=== PATIENT | female | born 1975 | race Caucasian/White ===

== ENCOUNTER → 2020-01-06 10:40 | Outpatient (BNVA) | payer OTHER, SELFPAY | PROVIDERS: PCP Internal Medicine; Referring Provider Internal Medicine; Visit Provider Advanced Practice Midwife | DX: Z76.89 Persons encountering health services in other specified circumstances (principal) ==

== ENCOUNTER → 2020-02-03 08:48 | Outpatient (BNVA) | payer OTHER, SELFPAY | PROVIDERS: PCP Internal Medicine; Visit Provider Advanced Practice Midwife | DX: Z76.89 Persons encountering health services in other specified circumstances (principal) ==

== ENCOUNTER 2020-09-07 11:19 | Outpatient (REF) | payer OTHER, SELFPAY ==
--- NOTE | ~2020-09-07 | XR_ITS ---
EXAMINATION: XR HIP, LEFT CLINICAL INFORMATION: Pain left hip. COMPARISON: None TECHNIQUE: Two views of the left hip. AP view pelvis. FINDINGS: There is normal symmetry of both hip joints and SI joints. No pelvic bone abnormality seen. There is IUD in the pelvis. The soft tissues are normal. Left hip: There is no visible acute fracture, dislocation or subluxation seen. The soft tissues are normal. XR/XR hip LT w PEL1V IMPRESSION: Unremarkable left hip and AP pelvis.
== END 2020-09-07 11:20 | disposition home or self-care (01) ==
LOC: HO.XRAY 11:19
PROVIDERS: PCP Internal Medicine; Visit Provider Physician Assistant
DX: M25.552 Pain in left hip (principal)
CPT/HCPCS: 73502

== ENCOUNTER 2020-11-17 16:00 | Outpatient (RCR) | payer OTHER, SELFPAY ==
--- NOTE | 2020-10-13 18:27 | MHC.PT.EP ---
[facility] [place] Office [place] Office [place] Office [address] Jose M Garcia [address] [phone] F: [phone] F: [phone] F: [phone] F: [phone] Physical Therapy Plan of Care Date of Evaluation: Date of Surgery: N/A Diagnosis: trochanteric bursitis of left hip Assessment: pt's signs and symptoms consistent w/ SI dysfunction. 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 pt also does have radiating pain and nerve symptoms. pt did not have reproduction of symptoms w/ palpation of greater trochanter, negative Jainya's, no reproduction of pain w/ active abduction ruling out trochanteric bursitis or ITB syndrome. pt had no reproduction of symptoms w/ sciatic nerve tension or w/ tension to piriformis ruling out piriformis syndrome. pt presents to physical therapy with pain, decreased range of motion, decreased strength, impaired functional mobility, impaired postural awareness, and gait deviations. pt is a good candidate for skilled PT due to age, potential remediation of impairments, typical disease/condition progression and prognosis, comorbidities, and motivation. pt would benefit from tailored strengthening and stretching exercise program, functional training, gait training, postural re-training, neuromuscular re-education, modalities as needed for pain, equipment safety demonstration. Frequency and Duration: The patient will be seen 2x/wk for 4 wks Short Term Goals: pt will be I w/ HEP to promote self-management of condition. pt will improve B glute strength by 1 MMT grade to promote ease in car transfers. Snf Goals: pt will report a statistically significant improvement in self-reported outcome measure, LEFI, to promote return to PLOF. pt will report <3/10 L glute pain w/ ambulating work-related distances to improve tolerance of gait as a mail superintendent. Treatment Plan: Modalities to reduce pain, spasms and effusion. Manual therapy to restore motion and function. Therapeutic exercise to improve strength and flexibility. Neuromuscular re-education for posture and balance. Therapeutic activities to return to functional activities of daily living. Electronically signed by: Isabella Lang PT, DPT Please sign and return to therapist. Thank you for your referral.
--- NOTE | 2020-12-16 11:28 | MHC.PT.DC ---
[facility] Office [place] Office [place] Office [address] Jose M Garcia 140 [facility] [phone] F: [phone] F: [phone] F: [phone] F: [phone] Physical Therapy Discharge Report Diagnosis: trochanteric bursitis of left hip Date of Surgery: N/A Date of Evaluation: 10/13/20 Date of Discharge: 12/16/20 Treatments to Date: 3 Cancellations to Date: 2 No Shows to Date: 2 Discharge Status: Visit Non-compliance Discharge Summary: The patient has not followed up with any further appointments in approximately one month. She is discharged for non-compliance. Electronically signed by: Isabella Lang PT, DPT Please sign and return to therapist. Thank you for your referral.
== END 2020-12-16 11:28 | disposition home or self-care (01) ==
LOC: HO.PT 16:00
PROVIDERS: PCP Physician Assistant; Visit Provider Physician Assistant
DX: M70.62 Trochanteric bursitis, left hip (principal)
CPT/HCPCS: 97110; 97112; 97140; 97162

== ENCOUNTER 2020-12-22 12:04 | Inpatient (IN) | payer OTHER, SELFPAY ==
--- NOTE | ~2020-12-22 | CT_ITS ---
EXAMINATION: CT angio head neck CLINICAL INFORMATION: Left upper extremity weakness. Left lower extremity weakness. COMPARISON: No relevant prior imaging. TECHNIQUE: Technologist Development images were obtained. A CT angiogram of the head and neck was performed in the arterial phase after the intravenous administration of 70 mL Omnipaque 350. Pre and delayed postcontrast images of the head were also obtained. MIP reconstructions were generated in multiple orientations at the acquisition workstation. Multiple three-dimensional surface rendered images and maximum intensity projection images were generated on a dedicated 3-D lab workstation. Arterial stenoses are measured in accordance with NASCET criteria or similar method if applicable. This CT examination was performed using dose optimization techniques as appropriate, including one or more of the following: Automated exposure control, iterative reconstruction, and adjustment of technique factors (mA and/or kVp) according to patient size (this includes techniques or standardized protocols for targeted exams where dose is matched to indication/reason for exam). Total exam dose-length product 2180 mGy-cm FINDINGS: Head: There is no acute intracranial hemorrhage. Delayed postcontrast images reveal no abnormal mass or enhancement within the intracranial compartment. No intracranial mass effect or midline shift. Lateral and third ventricles are normal. No hydrocephalus. Rivera-white matter differentiation is preserved and there is no evidence of acute territorial infarct. The calvarium and skull base are intact. Mastoid air cells and middle ear cavities are well aerated. There is mild to moderate paranasal sinus disease primarily affecting the ethmoid air cells. Globes and orbits are symmetric. CT angiogram neck: The aortic arch apex is normal. Origins of major aortic branches are widely patent. Common carotid arteries and carotid bifurcations are normal. No stenosis of the extracranial internal carotid arteries. There is eccentric mural thickening of the proximal V2 segment of the left vertebral artery causing narrowing of the lumen best depicted on axial image 696 [address] angiogram head: Intracranial internal carotid arteries are patent. The intradural vertebral artery segments and basilar artery are patent. There is a vascular fenestration within the proximal basilar artery. Anterior, middle, and posterior cerebral artery complexes are normal. No intracranial large vessel occlusion. Other: Soft tissues of the neck including the thyroid gland are normal. Visualized lung apices are clear. No acute osseous finding. Specifically no worrisome lytic or blastic osseous lesion. CT/CT angio head neck IMPRESSION: There is eccentric mural thickening of the proximal V2 segment of the left vertebral artery. Possible diagnostic considerations include atheromatous plaque or an arterial dissection. Cervical carotid and vertebral arteries are otherwise unremarkable. No intracranial large vessel occlusion. There is no evidence of acute territorial infarct or hemorrhage. No abnormal intracranial mass or enhancement.
--- NOTE | ~2020-12-22 | MR_ITS ---
EXAMINATION: MR BRAIN WITHOUT CONTRAST CLINICAL INFORMATION: Left arm weakness. COMPARISON: Head CT 12/22/2020. TECHNIQUE: Multiplanar, multisequence imaging of the brain was performed without intravenous contrast. FINDINGS: There is no acute infarction, mass, hemorrhage, or extra-axial collection. The ventricles, sulci, and basilar cisterns are normal in size and configuration. The flow voids of the major intracranial arteries appear intact. The bones and extracranial soft tissues are unremarkable. Mild paranasal sinus mucosal thickening is noted. The orbital contents appear normal. There is no mastoid fluid. MR/MR head/brain wo con IMPRESSION: No acute infarct, mass lesion, intracranial hemorrhage, or evidence of hydrocephalus.
[2020-12-22 12:09] VITALS: BP 154/72; PULSE 85; RESP 18; TEMP 36.8; O2SAT 98; BMI 25.8
--- NOTE | 2020-12-22 12:31 | ED_ITS ---
HPI - Neuro Symptoms/Deficit General Chief Complaint: Stroke Stated Complaint: ?stroke Time Seen by Provider: 12/22/20 12:31 Source: patient Mode of arrival: ambulatory Limitations: no limitations History of Present Illness Onset (ago): day(s) (yesterday at 7pm) Timing confirmed by: family member Location: left arm and left leg History of same: No Severity: moderate Quality: weak Relieving factors: none Exacerbating factors: none Context: sudden onset On Anticoagulants: No Associated symptoms: denies other symptoms Treatments Prior to Arrival: none Related Data Home Medications Medication Instructions Recorded Confirmed cetirizine 10 mg tablet (Zyrtec) 10 mg PO DAILY 12/22/20 12/22/20 ibuprofen 100 mg tablet 200 mg PO Q6H PRN 12/22/20 12/22/20 Allergies Allergy/AdvReac Type Severity Reaction Status Date / Time strawberry [STRAWBERRY] Allergy Mild CANKER Verified 12/22/20 12:09 SORES oranges Allergy Intermediate canker Uncoded 12/22/20 11:41 sores tomatoes Allergy Intermediate canker Uncoded 12/22/20 11:41 sores Review of Systems Review of Systems: Constitutional : No Weight loss, No Fever, No Chills, No Fatigue, No Malaise ENT/Mouth : No sore throat, No Rhinorrhea Eyes: No Eye Pain, No Swelling, No Redness Cardiovascular : No Chest Pain, No SOB, No Dyspnea on Exertion, No Orthopnea, No Edema, No Palpitations Respiratory : No Cough, No Sputum, No Wheezing Gastrointestinal : No Nausea, No Vomiting, No Diarrhea, No Constipation, No abdominal Pain, No Hematochezia, No Melena Genitourinary : No Dysuria, No Urinary Frequency, No Hematuria, Musculoskeletal : No joint pain, No Myalgias, No Joint Swelling Skin : No Skin Lesions, No rash Neuro : pos Weakness, No Numbness, No Dizziness, No Headache Psych : pos Anxiety/Panic, No Depression Heme/Lymph: No Bruising, No Bleeding,No Lymphadenopathy Endocrine : No Polyuria, No Polydipsia All other systems reviewed and are negative [facility] Past Medical History Attestation statement: The following information was validated with the patient. Medical History Conjunctivitis Elevated blood pressure reading without diagnosis of hypertension KELSEA (generalized anxiety disorder) History of asthma History of depression Hx of anxiety disorder Insomnia Left hemiparesis Surgical History Hx of ovarian cystectomy Family History Family History Mother Breast cancer Maternal Aunt Breast cancer Paternal Aunt Breast cancer Paternal Grandmother Breast cancer Sister Brain cancer Father Myocardial infarct Maternal Grandfather CVD (cardiovascular disease) Family/Other Substance abuse Mental problem Social History Social History Housing: Apartment Alcohol intake: current Alcohol intake frequency: a few times a week Patient Tobacco Use Status: Current everyday Tobacco user Tobacco use type: Cigarette Cigarettes Per Day: 15 e-Cigarette/Vaping Use: Never Used Advance Directives: No Advance Directives Information Provided: No service: No Current occupational status: employed 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 Oriented X3. No acute distress. Very anxious, tearful Eyes: Pupils equal, round and reactive to light. ENT: Pharynx normal. Neck: Normal inspection. Neck supple. CVS: Normal heart rate and rhythm. Pulses normal. Respiratory: No respiratory distress. Breath sounds normal. Abdomen: Soft and nontender. Skin: Skin warm and dry. Normal skin color. Normal skin turgor. Extremities: No lower extremity edema. No calf ttp Neuro: Oriented X 3. LUE 4/5 then will not raise it at shoulder, + L sided UE pronator drift, LLE 4/5 No sensory deficit. Course Course Course Narrative: patient is presenting over 12 hours after onset not a candidate for tPa or thrombectomy given findings will discuss with Neurology and vascular 410pm Dr. Ruelas and Dr. Silva Neurology: admit and start on aspirin Vascular: no acute surgical interventions at this time Radiology reports possible dissection patient aware, ordered PO aspirin MDM - Neuro Symptoms/Deficit MDM Narrative Medical decision making narrative: 45 yo female with hx of anxiety, recent sig life stress - no prior known issues with stroke at this time c/o L arm and leg weakness starting at 7pm last night. No recent trauma no known family history - at this time needs ativan to obtain blood work and testing due to her anxiety - labs, CTA for stroke/dissection ordered. Dispo per results and findings. Lab Data Result diagrams: 12/22/20 13:22 12/22/20 13:22 Labs: Lab Results 12/22/20 12/22/20 12/22/20 Range/Units 13:22 13:22 13:22 WBC 10.2 (4.8-10.8) X10*3/uL RBC 4.59 (4.20-5.50) X10*6/uL Hgb 14.5 (12.0-16.0) g/dl Hct 42.7 (37-47) % MCV 93.0 (80-98) fL MCH 31.6 (27.0-33.0) pg MCHC 34.0 (31.0-35.0) g/dl RDW 13.3 (11.0-16.0) % Plt Count 293 (160-400) X10*3/uL MPV 9.3 L (9.4-12.3) fL Immature Gran % (Auto) 0.7 H (0.0-0.4) % Neut % (Auto) 69.9 (45-73) % Lymph % (Auto) 18.7 L (20-40) % [place] % (Auto) 9.3 (2-11) % Eos % (Auto) 1.0 (0-4) % Baso % (Auto) 0.4 (0-2) % Lymph # (Auto) 1.9 (1.2-4.9) X10*3/uL [place] # (Auto) 1.0 (0.1-1.2) X10*3/uL Eos # (Auto) 0.1 (0.0-0.4) X10*3/uL Baso # (Auto) 0.0 (0.0-0.2) X10*3/uL Abs Immat Gran (auto) 0.07 H (0.00-0.03) X10*3/uL Absolute Neuts (auto) 7.1 (2.0-8.3) X10*3/uL Absolute Nucleated RBC 0.000 (0.0-0.012) X10*3/uL Nucleated RBC % (auto) 0.0 (0.0-0.2) /100WBC ESR 2 (0-20) MM/HR PT (9.9-13.0) SEC INR (0.9-1.1) APTT (24.1-38.0) SEC Sodium Cancelled Potassium Cancelled Chloride Cancelled Carbon Dioxide Cancelled Anion Gap Cancelled BUN Cancelled Creatinine Cancelled Estim Creat Clear Calc Cancelled Estimated GFR Cancelled Random Glucose Cancelled Calcium Cancelled Magnesium Cancelled Total Bilirubin Cancelled Direct Bilirubin Cancelled AST Cancelled ALT Cancelled Alkaline Phosphatase Cancelled Troponin I High Sens (<3.5-17.0) ng/L C-Reactive Protein Cancelled Total Protein Cancelled Albumin Cancelled TSH (0.32-4.0) uIU/mL Urine Color Urine Appearance Urine pH (5.0-8.0) Ur Specific [place] (1.005-1.025) Urine Protein (NEG-TRACE) MG/DL Urine Glucose (UA) (NEG) MG/DL Urine Ketones (NEG) MG/DL Urine Blood (NEG) Urine Nitrite (NEG) Ur Leukocyte Esterase (NEG) Urine Opiates Screen (Not Detect) Urine Fentanyl Screen (Not Detect) Ur Barbiturates Screen (Not Detect) Ur Phencyclidine Scrn (Not Detect) Ur Amphetamines Screen (Not Detect) U Benzodiazepines Scrn (Not Detect) Urine Cocaine Screen (Not Detect) U Marijuana (THC) Screen (Not Detect) COVID-19 (JUDD) (Negative) COVID-19 Clin Com 12/22/20 12/22/20 12/22/20 Range/Units 13:22 13:22 13:22 WBC (4.8-10.8) X10*3/uL RBC (4.20-5.50) X10*6/uL Hgb (12.0-16.0) g/dl Hct (37-47) % MCV (80-98) fL MCH (27.0-33.0) pg MCHC (31.0-35.0) g/dl RDW (11.0-16.0) % Plt Count (160-400) X10*3/uL MPV (9.4-12.3) fL Immature Gran % (Auto) (0.0-0.4) % Neut % (Auto) (45-73) % Lymph % (Auto) (20-40) % [place] % (Auto) (2-11) % Eos % (Auto) (0-4) % Baso % (Auto) (0-2) % Lymph # (Auto) (1.2-4.9) X10*3/uL [place] # (Auto) (0.1-1.2) X10*3/uL Eos # (Auto) (0.0-0.4) X10*3/uL Baso # (Auto) (0.0-0.2) X10*3/uL Abs Immat Gran (auto) (0.00-0.03) X10*3/uL Absolute Neuts (auto) (2.0-8.3) X10*3/uL Absolute Nucleated RBC (0.0-0.012) X10*3/uL Nucleated RBC % (auto) (0.0-0.2) /100WBC ESR (0-20) MM/HR PT 11.0 (9.9-13.0) SEC INR 1.0 (0.9-1.1) APTT 32.7 (24.1-38.0) SEC Sodium 142 Potassium 4.2 Chloride 108 Carbon Dioxide 23 Anion Gap 15 BUN 9 Creatinine 0.65 Estim Creat Clear Calc 109.1 Estimated GFR > 60 Random Glucose 97 Calcium 9.5 Magnesium 2.0 Total Bilirubin 0.5 Direct Bilirubin 0.2 AST 23 ALT 15 Alkaline Phosphatase 47 Troponin I High Sens < 3.5 (<3.5-17.0) ng/L C-Reactive Protein 0.14 Total Protein 6.7 Albumin 4.1 TSH 0.92 (0.32-4.0) uIU/mL Urine Color Urine Appearance Urine pH (5.0-8.0) Ur Specific [place] (1.005-1.025) Urine Protein (NEG-TRACE) MG/DL Urine Glucose (UA) (NEG) MG/DL Urine Ketones (NEG) MG/DL Urine Blood (NEG) Urine Nitrite (NEG) Ur Leukocyte Esterase (NEG) Urine Opiates Screen (Not Detect) Urine Fentanyl Screen (Not Detect) Ur Barbiturates Screen (Not Detect) Ur Phencyclidine Scrn (Not Detect) Ur Amphetamines Screen (Not Detect) U Benzodiazepines Scrn (Not Detect) Urine Cocaine Screen (Not Detect) U Marijuana (THC) Screen (Not Detect) COVID-19 (JUDD) (Negative) COVID-19 Clin Com 12/22/20 12/22/20 12/22/20 Range/Units 13:22 13:53 13:53 WBC (4.8-10.8) X10*3/uL RBC (4.20-5.50) X10*6/uL Hgb (12.0-16.0) g/dl Hct (37-47) % MCV (80-98) fL MCH (27.0-33.0) pg MCHC (31.0-35.0) g/dl RDW (11.0-16.0) % Plt Count (160-400) X10*3/uL MPV (9.4-12.3) fL Immature Gran % (Auto) (0.0-0.4) % Neut % (Auto) (45-73) % Lymph % (Auto) (20-40) % [place] % (Auto) (2-11) % Eos % (Auto) (0-4) % Baso % (Auto) (0-2) % Lymph # (Auto) (1.2-4.9) X10*3/uL [place] # (Auto) (0.1-1.2) X10*3/uL Eos # (Auto) (0.0-0.4) X10*3/uL Baso # (Auto) (0.0-0.2) X10*3/uL Abs Immat Gran (auto) (0.00-0.03) X10*3/uL Absolute Neuts (auto) (2.0-8.3) X10*3/uL Absolute Nucleated RBC (0.0-0.012) X10*3/uL Nucleated RBC % (auto) (0.0-0.2) /100WBC ESR (0-20) MM/HR PT (9.9-13.0) SEC INR (0.9-1.1) APTT (24.1-38.0) SEC Sodium Potassium Chloride Carbon Dioxide Anion Gap BUN Creatinine Estim Creat Clear Calc Estimated GFR Random Glucose Calcium Magnesium Total Bilirubin Direct Bilirubin AST ALT Alkaline Phosphatase Troponin I High Sens (<3.5-17.0) ng/L C-Reactive Protein Total Protein Albumin TSH (0.32-4.0) uIU/mL Urine Color STRAW Urine Appearance CLEAR Urine pH 6.0 (5.0-8.0) Ur Specific [place] <= 1.005 (1.005-1.025) Urine Protein NEG (NEG-TRACE) MG/DL Urine Glucose (UA) NEG (NEG) MG/DL Urine Ketones NEG (NEG) MG/DL Urine Blood NEG (NEG) Urine Nitrite NEG (NEG) Ur Leukocyte Esterase NEG (NEG) Urine Opiates Screen Not Detected (Not Detect) Urine Fentanyl Screen Not Detected (Not Detect) Ur Barbiturates Screen Not Detected (Not Detect) Ur Phencyclidine Scrn Not Detected (Not Detect) Ur Amphetamines Screen Not Detected (Not Detect) U Benzodiazepines Scrn Not Detected (Not Detect) Urine Cocaine Screen Not Detected (Not Detect) U Marijuana (THC) Screen Not Detected (Not Detect) COVID-19 (JUDD) Negative (Negative) COVID-19 Clin Com See Note ECG Data Attestation: I personally reviewed and interpreted this ECG as follows: ECG interpretation date: 12/22/20 ECG interpretation time: 14:01 Interpretation: Rate: 97 Rhythm: NSR [place]: normal Normal P waves. Normal JUSTUS. Normal QRS complex. ST T wave : no RONALDO, normal qTC: normal prior studies: no acute ischemia The study has been interpreted contemporaneously by me. . NIH Stroke Scale Internal: Initial- Upon Arrival Level of Consciousness: Alert Level of Consciousness Questions: Answers both questions correctly Level of Consciousness Commands: Performs both tasks correctly Best Gaze: Normal Visual: No visual loss Facial Palsy: Normal Motor Arm (Right): No drift Motor Arm (Left): Some effort against gravity Motor Leg (Right): No drift Motor Leg (Left): Some effort against gravity Limb Ataxia: Absent Sensory: Normal Best Language: No aphasia Dysarthia: Normal Extinction and Inattention: No abnormality Score: 4 Discharge Plan Discharge Clinical Impression: Left arm weakness, Vertebral artery dissection Patient Disposition: Admitted As Inpatient Prescriptions: No Action cetirizine [Zyrtec] 10 mg Tablet 10 mg PO DAILY RF: 0 ibuprofen [Motrin] 100 mg Tablet 200 mg PO Q6H PRN (Reason: Pain) RF: 0
--- NOTE | 2020-12-22 12:35 | ECG_ITS ---
Test Reason : STROKE Blood Pressure : / mmHG Vent. Rate : 097 BPM Atrial Rate : 097 BPM P-R Int : 152 ms QRS Dur : 074 ms QT Int : 358 ms P-R-T Axes : 047 049 024 degrees QTc Int : 454 ms Normal sinus rhythm Possible Left atrial enlargement Borderline ECG When compared with ECG of 29-MAR-2017 09:44, Premature ventricular complexes are no longer Present Referred By: Rebecca Hilario Electronically Signed By:ARI EARL
[2020-12-22] MEDS: LORazepam 1 MG TABLET 2 MG PO (12:51)
--- NOTE | 2020-12-22 12:57 | PC.NURSE ---
PT CRYING, REFUSING IV. MD AWARE. MED WITH ATIVAN AND WILL READDRESS IV IN 15 MIN.
[2020-12-22] MEDS: 0.9 % Sodium Chloride 1,000 ML 999 ML IVCONT (13:25)
[2020-12-22 13:27] LABS: MANUAL DIFF FLAG NO
[2020-12-22 13:38] LABS: Basophils Percent Auto 0.4 % (0-2); Eosinophils Absolute Auto 0.1 X10*3/uL (0.0-0.4); Hematocrit 42.7 % (37-47); Hemoglobin 14.5 g/dl (12.0-16.0); Imm Gran Abs Auto 0.07 X10*3/uL (0.00-0.03); Imm Gran Pct Auto 0.7 % (0.0-0.4); Lymphocytes Absolute Auto 1.9 X10*3/uL (1.2-4.9); Lymphocytes Percent Auto 18.7 % (20-40); Mean Corpuscular Hemoglobin 31.6 pg (27.0-33.0); Mean Platelet Volume 9.3 fL (9.4-12.3); Monocytes Percent Auto 9.3 % (2-11); Neutrophils Absolute Auto 7.1 X10*3/uL (2.0-8.3); Neutrophils Percent Auto 69.9 % (45-73); Platelet Count 293 X10*3/uL (160-400); Red Blood Count 4.59 X10*6/uL (4.20-5.50); Red Cell Distribution Width 13.3 % (11.0-16.0); White Blood Count 10.2 X10*3/uL (4.8-10.8)
[2020-12-22 13:45] LABS: COVID-19 Test Negative (Negative); IDNOW Serial# 9DD0AD1C
[2020-12-22 13:49] LABS: Troponin-I High Sensitivity < 3.5 ng/L (<3.5-17.0)
[2020-12-22 13:51] LABS: Alanine Aminotransferase 15 U/L (0-31); Albumin Level 4.1 g/dL (3.5-5.0); Alkaline Phosphatase 47 U/L (39-117); Anion Gap 15 (12-20); Aspartate Amino Transferase 23 U/L (5-31); Bilirubin Direct 0.2 mg/dL (0.0-0.5); Bilirubin Total 0.5 mg/dL (0.0-1.0); Blood Urea Nitrogen 9 mg/dL (9-16); C Reactive Protein 0.14 mg/dL (< or = 0.50); Calcium 9.5 mg/dL (8.4-10.2); Carbon Dioxide 23 mmol/L (22-29); Chloride 108 mmol/L (96-108); Creatinine Clr Calc Pharmacy 109.1; Estimated Glomerular Filt Rate > 60; Glucose Random 97 mg/dL (60-115); Potassium 4.2 mmol/L (3.3-5.1); Sodium 142 mmol/L (135-145); Total Protein 6.7 g/dL (6.5-8.0)
[2020-12-22 13:55] VITALS: BP 112/68; PULSE 81; RESP 15; TEMP 36.9; O2SAT 99
[2020-12-22 14:03] LABS: Partial Thromboplastin Time 32.7 SEC (24.1-38.0)
[2020-12-22 14:08] LABS: TSH reflex Free T4 0.92 uIU/mL (0.32-4.0)
[2020-12-22 14:15] LABS: Appearance Urine CLEAR; Color Urine STRAW; Glucose Urine UA NEG (NEG); Leukocyte Esterase Urine NEG (NEG); Nitrite Urine NEG (NEG); Specific Gravity - Urine <= 1.005 (1.005-1.025); Urine Blood NEG (NEG); Urine Ketones NEG (NEG); Urine Protein NEG (NEG-TRACE)
[2020-12-22 14:17] LABS: Amphetamine Screen Urine Not Detected (Not Detect); Barbiturates, Urine Not Detected (Not Detect); Benzodiazepines Screen Urine Not Detected (Not Detect); Cannabinoid Screen Urine Not Detected (Not Detect); Cocaine Screen Urine Not Detected (Not Detect); Fentanyl, urine Not Detected (Not Detect); Opiate Screen Urine Not Detected (Not Detect); Phencyclidine Screen Urine Not Detected (Not Detect)
[2020-12-22 14:44] LABS: Erythrocyte Sedimentation Rate 2 MM/HR (0-20)
--- NOTE | 2020-12-22 15:52 | MHC.STROKE ---
Addendum entered by Zaira Ledesma RN 12/22/20 16:29: [address] MALDONADO AND WE REVIEWED THE CTA RESULTS. I DID SPEAK WITH DR BRAGA ON THE PHONE AND HE IS RECOMMENDING HER TO BE ADMITTED AND DR VEGA WILL SEE HER IN CONSULT TOMORROW. Original Note: [id number] I MET WITH THE PATIENT AND EXPLAINED THE PLAN OF CARE WHILE SHE WAS IN THE ED. SHE PASSED THE SWALLOW SCREEN PRIOR TO ANY PO. SHE IS STILL C/O LEFT ARM HEAVINESS AND MINIMAL LEFT LEG WEAKNESS. NIHSS = [address] MALDONADO. 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 CTA H/N DONE AND IS PENDING. I ANSWERED ALL OF HER QUESTIONS AND I WILL CONTINUE TO FOLLOW.
--- NOTE | 2020-12-22 15:55 | PC.NURSE ---
assumed care for this patient at 1500, pt resting comfortably in bed at this time pending ct results. aware of plan of care and denied having any questions.
[2020-12-22] MEDS: Aspirin Enteric Coated 325 MG TABLET.DR PO (16:37)
--- NOTE | 2020-12-22 18:02 | PM.IMHP ---
History of Present Illness Date of Service: 12/22/20 Chief Complaint: Left arm weakness 45-year-old female with essentially no past medical history presents with approximately 14 hours or more of left-sided arm weakness. She states it began while watching TV on the couch her arm felt ?weird?. This persisted all evening. 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 She noted throughout the day that she was unable to hold her sac and that male was falling out due to her left arm weakness. She had 11:00 appointment with her PCP who sent her directly to the emergency room. In the emergency room she was found to have left-sided weakness; CT angio head and neck demonstrates eccentric mural thickening and of the proximal V2 segment of the left vertebral artery. Differential diagnosis includes atheromatous plaque or arterial dissection. ER physician placed a call to both Neurology and vascular surgery; neurology recommended aspirin 325 daily and will follow in a.m.. Vascular surgery stated there was no indication for intervention. At this point in time her deficit is stable and she will be admitted to telemetry for further workup and consult to Neurology Review of Systems Review of Systems: She denies chest pain She denies shortness of breath She denies nausea vomiting diarrhea She denies swallowing difficulties [facility] Medical History Conjunctivitis Elevated blood pressure reading without diagnosis of hypertension KELSEA (generalized anxiety disorder) History of asthma History of depression Hx of anxiety disorder Insomnia Left hemiparesis Family History Mother Breast cancer Maternal Aunt Breast cancer Paternal Aunt Breast cancer Paternal Grandmother Breast cancer Sister Brain cancer Father Myocardial infarct Maternal Grandfather CVD (cardiovascular disease) Family/Other Substance abuse Mental problem Pertinent family history: . 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 [employer] Meds Allergies Allergy/AdvReac Type Severity Reaction Status Date / Time strawberry [STRAWBERRY] Allergy Mild CANKER Verified 12/22/20 12:09 SORES oranges Allergy Intermediate canker Uncoded 12/22/20 11:41 sores tomatoes Allergy Intermediate canker Uncoded 12/22/20 11:41 sores Active Medications: Current Medications Melatonin (Melatonin 3 Mg Tablet) 6 mg PO BEDTIME PRN PRN Reason: Insomnia Ondansetron HCl (Ondansetron Hcl 4 Mg/2 Ml Vial) 4 mg IVPUSH Q8H PRN PRN Reason: Nausea and Vomiting Pharmacy Consult (Consult Rx Perform Med Rec) 1 each MISCELLANE ONCE PRN PRN Reason: Consult order Sodium Chloride (0.9 % Sodium Chloride Flush 3 Ml Syringe) [facility] [place] Medication Instructions Recorded Confirmed Last Taken Type cetirizine 10 mg tablet (Zyrtec) 10 mg PO DAILY 12/22/20 12/22/20 Unknown History ibuprofen 100 mg tablet 200 mg PO Q6H PRN 12/22/20 12/22/20 Unknown History Physical Exam Vital Signs and Narrative: Vital Signs: Last Vital Signs Temp 98.4 F 12/22/20 13:55 Pulse 81 12/22/20 13:55 Resp 15 12/22/20 13:55 BP 112/68 12/22/20 13:55 Pulse Ox 99 12/22/20 13:55 Body Mass Index 25.8 Const: Other: Anxious; no acute distress HENMT: Other: Mucous membranes are moist; oropharynx is clear. Palate is symmetrical Resp: Other: Clear to auscultation; no rales rhonchi or wheezes Cardio: Other: No S4; S1-S2; no S3 without murmurs rubs or gallops. Regular rate and rhythm GI: Other: Soft nontender nondistended with normoactive bowel sounds. No apparent hepatosplenomegaly Neuro: Other: Cranial nerves 2-12 grossly intact as tested. There is marked pronator drift on the left. Motor is 5/5 on the right and 3-4 left upper extremity 4-5 right lower extremity. Gait is steady but guarded. No cognitive deficit appreciated Extrem: Other: No edema bilaterally Results Labs CBC and Chem 7: 12/22/20 13:22 12/22/20 13:22 Labs: Laboratory Results - last 24 hr 12/22/20 12/22/20 12/22/20 13:22 13:22 13:22 MCV 93.0 MCH 31.6 MCHC 34.0 RDW 13.3 Plt Count 293 MPV 9.3 L Immature Gran % (Auto) 0.7 H Neut % (Auto) 69.9 Lymph % (Auto) 18.7 L [place] % (Auto) 9.3 Eos % (Auto) 1.0 Baso % (Auto) 0.4 Lymph # (Auto) 1.9 [place] # (Auto) 1.0 Eos # (Auto) 0.1 Baso # (Auto) 0.0 Abs Immat Gran (auto) 0.07 H Absolute Neuts (auto) 7.1 Absolute Nucleated RBC 0.000 Nucleated RBC % (auto) 0.0 ESR 2 PT INR APTT Anion Gap Cancelled Estim Creat Clear Calc Cancelled Estimated GFR Cancelled Random Glucose Cancelled Calcium Cancelled Magnesium Cancelled Total Bilirubin Cancelled Direct Bilirubin Cancelled AST Cancelled ALT Cancelled Alkaline Phosphatase Cancelled Troponin I High Sens C-Reactive Protein Cancelled Total Protein Cancelled Albumin Cancelled TSH Urine Color Urine Appearance Urine pH Ur Specific [place] Urine Protein Urine Glucose (UA) Urine Ketones Urine Blood Urine Nitrite Ur Leukocyte Esterase Urine Opiates Screen Urine Fentanyl Screen Ur Barbiturates Screen Ur Phencyclidine Scrn Ur Amphetamines Screen U Benzodiazepines Scrn Urine Cocaine Screen U Marijuana (THC) Screen COVID-19 (JUDD) COVID-19 Clin Com 12/22/20 12/22/20 12/22/20 13:22 13:22 13:22 MCV MCH MCHC RDW Plt Count MPV Immature Gran % (Auto) Neut % (Auto) Lymph % (Auto) [place] % (Auto) Eos % (Auto) Baso % (Auto) Lymph # (Auto) [place] # (Auto) Eos # (Auto) Baso # (Auto) Abs Immat Gran (auto) Absolute Neuts (auto) Absolute Nucleated RBC Nucleated RBC % (auto) ESR PT 11.0 INR 1.0 APTT 32.7 Anion Gap 15 Estim Creat Clear Calc 109.1 Estimated GFR > 60 Random Glucose 97 Calcium 9.5 Magnesium 2.0 Total Bilirubin 0.5 Direct Bilirubin 0.2 AST 23 ALT 15 Alkaline Phosphatase 47 Troponin I High Sens < 3.5 C-Reactive Protein 0.14 Total Protein 6.7 Albumin 4.1 TSH 0.92 Urine Color Urine Appearance Urine pH Ur Specific [place] Urine Protein Urine Glucose (UA) Urine Ketones Urine Blood Urine Nitrite Ur Leukocyte Esterase Urine Opiates Screen Urine Fentanyl Screen Ur Barbiturates Screen Ur Phencyclidine Scrn Ur Amphetamines Screen U Benzodiazepines Scrn Urine Cocaine Screen U Marijuana (THC) Screen COVID-19 (JUDD) COVID-19 Clin Com 12/22/20 12/22/20 12/22/20 13:22 13:53 13:53 MCV MCH MCHC RDW Plt Count MPV Immature Gran % (Auto) Neut % (Auto) Lymph % (Auto) [place] % (Auto) Eos % (Auto) Baso % (Auto) Lymph # (Auto) [place] # (Auto) Eos # (Auto) Baso # (Auto) Abs Immat Gran (auto) Absolute Neuts (auto) Absolute Nucleated RBC Nucleated RBC % (auto) ESR PT INR APTT Anion Gap Estim Creat Clear Calc Estimated GFR Random Glucose Calcium Magnesium Total Bilirubin Direct Bilirubin AST ALT Alkaline Phosphatase Troponin I High Sens C-Reactive Protein Total Protein Albumin TSH Urine Color STRAW Urine Appearance CLEAR Urine pH 6.0 Ur Specific [place] <= 1.005 Urine Protein NEG Urine Glucose (UA) NEG Urine Ketones NEG Urine Blood NEG Urine Nitrite NEG Ur Leukocyte Esterase NEG Urine Opiates Screen Not Detected Urine Fentanyl Screen Not Detected Ur Barbiturates Screen Not Detected Ur Phencyclidine Scrn Not Detected Ur Amphetamines Screen Not Detected U Benzodiazepines Scrn Not Detected Urine Cocaine Screen Not Detected U Marijuana (THC) Screen Not Detected COVID-19 (JUDD) Negative COVID-19 Clin Com See Note Imaging Radiologist's Impressions: Impressions Head/Neck CTA 12/22/20 12:35 IMPRESSION: There is eccentric mural thickening of the proximal V2 segment of the left vertebral artery. Possible diagnostic considerations include atheromatous plaque or an arterial dissection. Cervical carotid and vertebral arteries are otherwise unremarkable. No intracranial large vessel occlusion. There is no evidence of acute territorial infarct or hemorrhage. No abnormal intracranial mass or enhancement. Assessment and Plan (1) Vertebral artery dissection: Status: Acute (2) Left arm weakness: Status: Acute (3) KELSEA (generalized anxiety disorder): Status: Acute 45-year-old female with past medical history significant only for general anxiety disorder presents after approximately 14 hours of left arm and leg weakness. ER workup including CT angio of head and neck demonstrate eccentric mural thickening of the proximal V2 segment of the left vertebral artery. Differential diagnosis include atheromatous plaque versus arterial dissection. Patient will be admitted to telemetry with neuro consult in a.m. 1. Eccentric mural thickening proximal V2 segment left vertebral artery Will admit to telemetry; continue aspirin 325 daily with consult placed to neurology for the morning. Will check lipids in a.m. and treat as indicated. TSH normal on admitting labs 2. Generalized anxiety disorder Given Ativan in the ER with good effect; patient somewhat anxious on presentation will prescribe p.r.n. Ativan overnight and follow up response in the morning. 3. Tobacco abuse She has approximately 1 pack a day smoker for (years). Declines nicotine patch at this time will utilize Ativan if issues. Follow-up with Neurology in the morning question appropriateness of nicotine patch 4. Full code DVT prophylaxis: Venodyne boots Further plans based on clinical course and forthcoming data Quality Stroke Does the patient have a stroke diagnosis?: No Reason for No Anti-thrombotic by Day Two: N/A - Med Ordered VTE Prior VTE?: No VTE Risk Level:: Medical - moderate - high VTE Device Contraindication: N/A - Device Ordered VTE Drug Contraindication: Treatment Not Indicated
[2020-12-22 19:04] LABS: Glucose, Whole Blood 84 mg/dL (60-115)
[2020-12-22 19:16] VITALS: BP 131/68; PULSE 74; RESP 14; TEMP 36.9; O2SAT 98
--- NOTE | 2020-12-22 22:08 | MHC.CM.PN ---
CM attempted to meet with admitted patient with bed assignment pending. Pt sleeping soundly. Unable to wake. Will attempt to meet with pt when she wakes.
[2020-12-22 23:20] VITALS: BP 108/63; PULSE 80; RESP 16; O2SAT 97
[2020-12-23] VITALS (7 sets, daily range): BP systolic 108–142; BP diastolic 55–76; PULSE 73–79; RESP 17–18; TEMP 36.5–37; O2SAT 96–99
[2020-12-23 06:54] LABS: MANUAL DIFF FLAG NO
[2020-12-23 06:57] LABS: Basophils Percent Auto 0.5 % (0-2); Eosinophils Absolute Auto 0.2 X10*3/uL (0.0-0.4); Eosinophils Percent Auto 2.2 % (0-4); Hematocrit 40.5 % (37-47); Hemoglobin 13.7 g/dl (12.0-16.0); Imm Gran Abs Auto 0.07 X10*3/uL (0.00-0.03); Imm Gran Pct Auto 0.8 % (0.0-0.4); Lymphocytes Absolute Auto 1.5 X10*3/uL (1.2-4.9); Lymphocytes Percent Auto 17.1 % (20-40); Mean Corpuscular HGB Conc 33.8 g/dl (31.0-35.0); Mean Corpuscular Hemoglobin 31.4 pg (27.0-33.0); Mean Corpuscular Volume 92.9 fL (80-98); Mean Platelet Volume 9.5 fL (9.4-12.3); Monocytes Absolute Auto 0.9 X10*3/uL (0.1-1.2); Monocytes Percent Auto 10.3 % (2-11); Neutrophils Absolute Auto 5.9 X10*3/uL (2.0-8.3); Neutrophils Percent Auto 69.1 % (45-73); Platelet Count 291 X10*3/uL (160-400); Red Blood Count 4.36 X10*6/uL (4.20-5.50); Red Cell Distribution Width 13.4 % (11.0-16.0); White Blood Count 8.6 X10*3/uL (4.8-10.8)
[2020-12-23 07:31] LABS: Anion Gap 11 (12-20); Blood Urea Nitrogen 8 mg/dL (9-16); Calcium 8.6 mg/dL (8.4-10.2); Carbon Dioxide 23 mmol/L (22-29); Chloride 110 mmol/L (96-108); Cholesterol 183 mg/dL; Creatinine Clr Calc Pharmacy 116.3; Estimated Glomerular Filt Rate > 60; Glucose Random 79 mg/dL (60-115); HDL Cholesterol 49 mg/dL; LDL Cholesterol Calculated 120 mg/dl; Potassium 4.5 mmol/L (3.3-5.1); Sodium 139 mmol/L (135-145); Triglycerides 74 mg/dL
--- NOTE | 2020-12-23 08:05 | PC.NURSE ---
report taken from madhu chua pt here for stroke like s/s, neuros appear grossly intact, l side arm and leg weaker than r, still moving independently. denies hx of htn or stroke in past. tolerating po w good swallow, multiple food and drink items around pt. wctm for dc needs.
--- NOTE | 2020-12-23 10:48 | MHC.CM.PN ---
CM MET WITH PT IN ED 03. PT REPORTS SHE LIVES WITH HER DAUGHTER AND IS FULLY INDEPENDENT PT HAS NO DME AND NO IN HOME SERVICES PT IS EMPLOYED AND DRIVES PT DOES NOT HAVE A HCP, SHE IS AWARE CM CAN ASSIST PT CONFIRMS HER PCP IS KATIE ROMERO CURRENT DC PLAN IS HOME WITH NO SERVICES PT WILL DRIVE HERSELF HOME, CAR IN LOT
--- NOTE | 2020-12-23 11:58 | HO.PM.IMPN ---
Subjective Subjective Date of Service: 12/23/20 Interval History: No acute events overnight. Feels she can move her left arm somewhat better although feels heavy . No exacerbation of anxiety thus far Review of Systems She denies chest pain She denies shortness of breath She denies nausea vomiting diarrhea She denies swallowing difficulties Physical Exam Vital Signs: Vital Signs: Last Vital Signs Temp 98.0 F 12/23/20 01:56 Pulse 75 12/23/20 04:44 Resp 18 12/23/20 04:44 BP 108/65 12/23/20 04:44 Pulse Ox 98 12/23/20 04:44 Body Mass Index 25.8 Const: Other: Anxious; no acute distress HENMT: Other: Mucous membranes are moist; oropharynx is clear. Palate is symmetrical Resp: Other: Clear to auscultation; no rales rhonchi or wheezes Cardio: Other: No S4; S1-S2; no S3 without murmurs rubs or gallops. Regular rate and rhythm GI: Other: Soft nontender nondistended with normoactive bowel sounds. No apparent hepatosplenomegaly Neuro: Other: Cranial nerves 2-12 grossly intact as tested. There is marked pronator drift on the left. Motor is 5/5 on the right UE and 4/5 left UE; 5/5 right lower extremity. Gait is steady but guarded. No cognitive deficit appreciated Extrem: Other: No edema bilaterally Objective Data Active Medications Lorazepam (Lorazepam 0.5 Mg Tablet) 0.5 mg PO Q6H PRN PRN Reason: Anxiety Melatonin (Melatonin 3 Mg Tablet) 6 mg PO BEDTIME PRN PRN Reason: Insomnia Ondansetron HCl (Ondansetron Hcl 4 Mg/2 Ml Vial) 4 mg IVPUSH Q8H PRN PRN Reason: Nausea and Vomiting Pharmacy Consult (Consult Rx Perform Med Rec) 1 each MISCELLANE ONCE PRN PRN Reason: Consult order Sodium Chloride (0.9 % Sodium Chloride Flush 3 Ml Syringe) 3 ml IVFLUSH QSHIFT [facility] Last Admin: 12/23/20 08:05 Dose: Not Given Documented by: RICARDA Non-Admin Reason: Med Not Available Labs CBC & Chem 7: 12/23/20 06:50 12/23/20 06:50 Labs: Laboratory Results - last 24 hr 12/22/20 12/22/20 12/22/20 13:22 13:22 13:22 MCV 93.0 MCH 31.6 MCHC 34.0 RDW 13.3 Plt Count 293 MPV 9.3 L Immature Gran % (Auto) 0.7 H Neut % (Auto) 69.9 Lymph % (Auto) 18.7 L [place] % (Auto) 9.3 Eos % (Auto) 1.0 Baso % (Auto) 0.4 Lymph # (Auto) 1.9 [place] # (Auto) 1.0 Eos # (Auto) 0.1 Baso # (Auto) 0.0 Abs Immat Gran (auto) 0.07 H Absolute Neuts (auto) 7.1 Absolute Nucleated RBC 0.000 Nucleated RBC % (auto) 0.0 ESR 2 PT INR APTT Anion Gap Cancelled Estim Creat Clear Calc Cancelled Estimated GFR Cancelled POC Glucose Random Glucose Cancelled Calcium Cancelled Magnesium Cancelled Total Bilirubin Cancelled Direct Bilirubin Cancelled AST Cancelled ALT Cancelled Alkaline Phosphatase Cancelled Troponin I High Sens C-Reactive Protein Cancelled Total Protein Cancelled Albumin Cancelled Triglycerides Cholesterol LDL Cholesterol, Calc HDL Cholesterol TSH Urine Color Urine Appearance Urine pH Ur Specific [place] Urine Protein Urine Glucose (UA) Urine Ketones Urine Blood Urine Nitrite Ur Leukocyte Esterase Urine Opiates Screen Urine Fentanyl Screen Ur Barbiturates Screen Ur Phencyclidine Scrn Ur Amphetamines Screen U Benzodiazepines Scrn Urine Cocaine Screen U Marijuana (THC) Screen COVID-19 (JUDD) COVID-19 Clin Com 12/22/20 12/22/20 12/22/20 13:22 13:22 13:22 MCV MCH MCHC RDW Plt Count MPV Immature Gran % (Auto) Neut % (Auto) Lymph % (Auto) [place] % (Auto) Eos % (Auto) Baso % (Auto) Lymph # (Auto) [place] # (Auto) Eos # (Auto) Baso # (Auto) Abs Immat Gran (auto) Absolute Neuts (auto) Absolute Nucleated RBC Nucleated RBC % (auto) ESR PT 11.0 INR 1.0 APTT 32.7 Anion Gap 15 Estim Creat Clear Calc 109.1 Estimated GFR > 60 POC Glucose Random Glucose 97 Calcium 9.5 Magnesium 2.0 Total Bilirubin 0.5 Direct Bilirubin 0.2 AST 23 ALT 15 Alkaline Phosphatase 47 Troponin I High Sens < 3.5 C-Reactive Protein 0.14 Total Protein 6.7 Albumin 4.1 Triglycerides Cholesterol LDL Cholesterol, Calc HDL Cholesterol TSH 0.92 Urine Color Urine Appearance Urine pH Ur Specific [place] Urine Protein Urine Glucose (UA) Urine Ketones Urine Blood Urine Nitrite Ur Leukocyte Esterase Urine Opiates Screen Urine Fentanyl Screen Ur Barbiturates Screen Ur Phencyclidine Scrn Ur Amphetamines Screen U Benzodiazepines Scrn Urine Cocaine Screen U Marijuana (THC) Screen COVID-19 (JUDD) COVID-19 Clin Com 12/22/20 12/22/20 12/22/20 13:22 13:53 13:53 MCV MCH MCHC RDW Plt Count MPV Immature Gran % (Auto) Neut % (Auto) Lymph % (Auto) [place] % (Auto) Eos % (Auto) Baso % (Auto) Lymph # (Auto) [place] # (Auto) Eos # (Auto) Baso # (Auto) Abs Immat Gran (auto) Absolute Neuts (auto) Absolute Nucleated RBC Nucleated RBC % (auto) ESR PT INR APTT Anion Gap Estim Creat Clear Calc Estimated GFR POC Glucose Random Glucose Calcium Magnesium Total Bilirubin Direct Bilirubin AST ALT Alkaline Phosphatase Troponin I High Sens C-Reactive Protein Total Protein Albumin Triglycerides Cholesterol LDL Cholesterol, Calc HDL Cholesterol TSH Urine Color STRAW Urine Appearance CLEAR Urine pH 6.0 Ur Specific [place] <= 1.005 Urine Protein NEG Urine Glucose (UA) NEG Urine Ketones NEG Urine Blood NEG Urine Nitrite NEG Ur Leukocyte Esterase NEG Urine Opiates Screen Not Detected Urine Fentanyl Screen Not Detected Ur Barbiturates Screen Not Detected Ur Phencyclidine Scrn Not Detected Ur Amphetamines Screen Not Detected U Benzodiazepines Scrn Not Detected Urine Cocaine Screen Not Detected U Marijuana (THC) Screen Not Detected COVID-19 (JUDD) Negative COVID-19 Clin Com See Note 12/22/20 12/23/20 12/23/20 19:00 06:50 06:50 MCV 92.9 MCH 31.4 MCHC 33.8 RDW 13.4 Plt Count 291 MPV 9.5 Immature Gran % (Auto) 0.8 H Neut % (Auto) 69.1 Lymph % (Auto) 17.1 L [place] % (Auto) 10.3 Eos % (Auto) 2.2 Baso % (Auto) 0.5 Lymph # (Auto) 1.5 [place] # (Auto) 0.9 Eos # (Auto) 0.2 Baso # (Auto) 0.0 Abs Immat Gran (auto) 0.07 H Absolute Neuts (auto) 5.9 Absolute Nucleated RBC 0.000 Nucleated RBC % (auto) 0.0 ESR PT INR APTT Anion Gap 11 L Estim Creat Clear Calc 116.3 Estimated GFR > 60 POC Glucose 84 Random Glucose 79 Calcium 8.6 D Magnesium Total Bilirubin Direct Bilirubin AST ALT Alkaline Phosphatase Troponin I High Sens C-Reactive Protein Total Protein Albumin Triglycerides 74 Cholesterol 183 LDL Cholesterol, Calc 120 HDL Cholesterol 49 TSH Urine Color Urine Appearance Urine pH Ur Specific [place] Urine Protein Urine Glucose (UA) Urine Ketones Urine Blood Urine Nitrite Ur Leukocyte Esterase Urine Opiates Screen Urine Fentanyl Screen Ur Barbiturates Screen Ur Phencyclidine Scrn Ur Amphetamines Screen U Benzodiazepines Scrn Urine Cocaine Screen U Marijuana (THC) Screen COVID-19 (JUDD) COVID-19 Clin Com Assessment and Plan (1) Left arm weakness: Status: Acute Assessment and Plan: 45-year-old female with past medical history significant only for general anxiety disorder presents after approximately 14 hours of left arm and leg weakness. ER workup including CT angio of head and neck demonstrate eccentric mural thickening of the proximal V2 segment of the left vertebral artery. Differential diagnosis include atheromatous plaque versus arterial dissection. No acute issues overnight; 1. Eccentric mural thickening proximal V2 segment left vertebral artery Will admit to telemetry; continue aspirin 325 daily;Start statin/ACEI as tolerated. Check MRI C- 2. Generalized anxiety disorder Given Ativan in the ER with good effect; patient somewhat anxious on presentation will prescribe p.r.n. Ativan overnight and follow up response in the morning. 3. Tobacco abuse No issues in the absence of tobacco 4. Full code DVT prophylaxis: Venodyne boots Further plans based on clinical course and forthcoming data Quality Stroke Does the patient have a stroke diagnosis?: No Reason for No Anti-thrombotic by Day Two: N/A - Med Ordered VTE Prior VTE?: No VTE Risk Level:: Medical - moderate - high VTE Device Contraindication: N/A - Device Ordered VTE Drug Contraindication: Treatment Not Indicated
--- NOTE | 2020-12-23 12:10 | PC.NURSE ---
taken to mri w transporter via wheelchair
--- NOTE | 2020-12-23 12:42 | MHC.STROKE ---
EMS CALLED [phone], NOT A STROKE ALERT, BACK PAIN AND LEFT SIDE WEAKER THAN RIGHT. ARRIVED AT 1124. PATIENT EXAMINED BY DR LOPEZ, STROKE PROTOCOL ACTIVATED. STAT CT HEAD, NO BLEED. HE HAS AFIB AND IS ON COUMADIN, INR 2.7, SYMPTOMS WORSENED YESTERDAY BUT HE HAS HAD ONGOING BACK PAIN. LKW 12/22/20. HE IS EXCLUDED FROM TPA BASED ON INR OF 2.7 AND UNKNOWN ONSET AND > 4.5 HOURS FROM WEAKNESS. HE PASSED THE SWALLOW SCREEN. HE HAS TREMORS, AND DEMENTIA. HE HAS HIS FIRST APPOINTMENT WITH DR BRAGA SOMETIME THIS MONTH. I EXPLAINED TO THE THAT DR VEGA IS COVERING THIS WEEKEND AND HE WILL SEE HER .
--- NOTE | 2020-12-23 13:40 | P.CNNE_ITS ---
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 A days before presentation she woke up with some pain and stiffness in the left side of the neck which she attributed to sleeping wrong and this continued for the next 4 days and was worst on Saturday. On Saturday 2 days before presentation to the emergency room, she had 3 of 4 episodes of lightheaded dizziness at work. On Saturday evening she was watching TV and suddenly the left upper extremity felt heavy and she had difficulty using it. She walked to bed did not have any significant leg weakness no facial droop or slurring and went to bed. The symptoms persisted. There was no pain down the arm no significant neck pain at any point at this time and no symptoms on the right side. She was not dizzy anymore and had no headache or visual disturbance. 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 She was sent to the emergency room with these symptoms of left upper extremity weakness and heaviness. There was no loss of feeling. She said that she tripped a couple of times so she is not sure if the left leg may be slightly affected. She has been in the emergency room overnight and has felt some improvement. She had a CTA of the head and neck which I have reviewed. The CT scan of the brain was normal. CT angiogram of the intracranial circulation was normal. CT angiogram of the neck was likewise normal except for slight asymmetry of the left vertebral V2 which was interpreted as a slight mural thickening on 1 side however more than 50% of the lumen remains open. She has just completed an MRI of the brain which I have reviewed without the official reading being available and found no evidence of an acute stroke or any chronic vascular disease. The patient does have a history of generalized anxiety disorder. Review of Systems Review of Systems: She denies chest pain She denies shortness of breath She denies nausea vomiting diarrhea She denies swallowing difficulties Neurologic: Comments: Downward drift of the left upper extremity with weakness in the left deltoid and biceps graded at 4 to 4-/5. Triceps 4+/5 wrist extensors and normal finger spread is normal. She is slightly slow and rapid finger tapping. Finger-nose test is well performed. Cranial nerves are normal although there are few beats of left beating nystagmus on left lateral gaze only. There is minimal left hip flexor weakness 5-/5 which is inconsistent. There is asymmetry of her reflexes with slight hyperreflexia on the right compar ed to the left with a diminished reflexes diminished. Plantar response are flexor. Sensory exam is normal. [facility] Past Medical History Medical History Conjunctivitis Elevated blood pressure reading without diagnosis of hypertension KELSEA (generalized anxiety disorder) History of asthma History of depression Hx of anxiety disorder Insomnia Left hemiparesis Family History Family History Mother Breast cancer Maternal Aunt Breast cancer Paternal Aunt Breast cancer Paternal Grandmother Breast cancer Sister Brain cancer Father Myocardial infarct Maternal Grandfather CVD (cardiovascular disease) Family/Other Substance abuse Mental problem Pertinent family history: . 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 Meds Allergies Allergy/AdvReac Type Severity Reaction Status Date / Time strawberry [STRAWBERRY] Allergy Mild CANKER Verified 12/22/20 12:09 SORES oranges Allergy Intermediate canker Uncoded 12/22/20 11:41 sores tomatoes Allergy Intermediate canker Uncoded 12/22/20 11:41 sores Active Medications: Current Medications Lorazepam (Lorazepam 0.5 Mg Tablet) 0.5 mg PO Q6H PRN PRN Reason: Anxiety Melatonin (Melatonin 3 Mg Tablet) 6 mg PO BEDTIME PRN PRN Reason: Insomnia Ondansetron HCl (Ondansetron Hcl 4 Mg/2 Ml Vial) 4 mg IVPUSH Q8H PRN PRN Reason: Nausea and Vomiting Pharmacy Consult (Consult Rx Perform Med Rec) 1 each MISCELLANE ONCE PRN PRN Reason: Consult order Sodium Chloride (0.9 % Sodium Chloride Flush 3 Ml Syringe) 3 [facility] Last Admin: 12/23/20 08:05 Dose: Not Given Documented by: Home Medications Medication Instructions Recorded Confirmed Last Taken Type cetirizine 10 mg tablet (Zyrtec) 10 mg PO DAILY 12/22/20 12/22/20 Unknown History ibuprofen 100 mg tablet 200 mg PO Q6H PRN 12/22/20 12/22/20 Unknown History Physical Exam Vital Signs: Vital Signs: Last Vital Signs Temp 98.0 F 12/23/20 01:56 Pulse 75 12/23/20 04:44 Resp 18 12/23/20 04:44 BP 108/65 12/23/20 04:44 Pulse Ox 98 12/23/20 04:44 Body Mass Index 25.8 Const: Other: Anxious; no acute distress HENMT: Other: Mucous membranes are moist; oropharynx is clear. Palate is symmetrical Resp: Other: Clear to auscultation; no rales rhonchi or wheezes Cardio: Other: No S4; S1-S2; no S3 without murmurs rubs or gallops. Regular rate and rhythm GI: Other: Soft nontender nondistended with normoactive bowel sounds. No apparent hepatosplenomegaly Neuro: Other: Cranial nerves 2-12 grossly intact as tested. There is marked pronator drift on the left. Motor is 5/5 on the right UE and 4/5 left UE; 5/5 right lower extremity. Gait is steady but guarded. No cognitive deficit appreciated Extrem: Other: No edema bilaterally Results Labs CBC & Chem 7: 12/23/20 06:50 12/23/20 06:50 Labs: Short CBC 12/22/20 12/23/20 Range/Units 13:22 06:50 WBC 10.2 8.6 (4.8-10.8) X10*3/uL Hgb 14.5 13.7 (12.0-16.0) g/dl Hct 42.7 40.5 (37-47) % Plt Count 293 291 (160-400) X10*3/uL BMP 12/22/20 12/23/20 13:22 06:50 Sodium 142 139 Potassium 4.2 4.5 Chloride 108 110 H Carbon Dioxide 23 23 BUN 9 8 L Creatinine 0.65 0.61 Calcium 9.5 8.6 D Liver Function 12/22/20 Range/Units 13:22 Total Bilirubin 0.5 (0.0-1.0) mg/dL Direct Bilirubin 0.2 (0.0-0.5) mg/dL AST 23 (5-31) U/L ALT 15 (0-31) U/L Alkaline Phosphatase 47 (39-117) U/L Albumin 4.1 (3.5-5.0) g/dL Urine 12/22/20 Range/Units 13:53 Urine Color STRAW Urine Appearance CLEAR Urine pH 6.0 (5.0-8.0) Ur Specific [place] <= 1.005 (1.005-1.025) Urine Protein NEG (NEG-TRACE) MG/DL Urine Glucose (UA) NEG (NEG) MG/DL Assessment and Plan (1) Left arm weakness: Status: Acute Her presentation is somewhat suggestive of a stuttering stroke however imaging studies do not show any evidence of a stroke including on the MRI. It would be unusual for this to be a presentation of cervical radiculopathy but in view of the preceding neck pain I would recommend doing an MRI of the cervical spine. There is no significant stenosis of the left vertebral artery where there is a slight asymmetry of the lumen in the V2 segment. I am not convinced that she has had a stroke. I would continue aspirin 81 mg a day monitor her blood pressure. Obtain cervical spine MRI PT OT. Echocardiogram. Thank you for allowing me to participate in her care 45-year-old female with past medical history significant only for general anxiety disorder presents after approximately 14 hours of left arm and leg weakness. ER workup including CT angio of head and neck demonstrate eccentric mural thickening of the proximal V2 segment of the left vertebral artery. Differential diagnosis include atheromatous plaque versus arterial dissection. No acute issues overnight; 1. Eccentric mural thickening proximal V2 segment left vertebral artery Will admit to telemetry; continue aspirin 325 daily;Start statin/ACEI as tolerated. Check MRI C- 2. Generalized anxiety disorder Given Ativan in the ER with good effect; patient somewhat anxious on presentation will prescribe p.r.n. Ativan overnight and follow up response in the morning. 3. Tobacco abuse No issues in the absence of tobacco 4. Full code DVT prophylaxis: Venodyne boots Further plans based on clinical course and forthcoming data Procedures Date of Service Date of Service: 12/23/20
--- NOTE | 2020-12-23 15:00 | CA_ITS ---
Transthoracic Echocardiogram Patient (Last, First, Middle): Kassie Valentine M Gender: Female Date of : 1975 Age: 45 Procedure Date: 12/23/2020 Procedure Type: Transthoracic Echocardiogram Location: [facility] [place] Height: 167.64 cm Weight: 72.58 kg BSA: 1.82 m2 Heart Rate: bpm BP: 133 / 73 mmHg [employer]: VH/CP Referring MD: Shun Paula DO Symptoms: left arm weakness Study Quality: Good ECG Rhythm: Sinus Conclusions: - Normal left ventricular size, thickness, systolic function, and wall motion. - Normal right ventricular cavity size and systolic function. - Both atria are normal in size. There is no evidence of interatrial shunt by color Doppler. Findings Left Ventricle Normal left ventricular size, thickness, systolic function, and wall motion. The visually estimated ejection fraction is between 60-65%. Diastolic function is normal for age. Right Ventricle Normal right ventricular cavity size and systolic function. Atria Both atria are normal in size. There is no evidence of interatrial shunt by color Doppler. Aortic Valve Normal aortic valve structure and function. There is no aortic valve stenosis. There is no aortic valve regurgitation. Mitral Valve Normal mitral valve structure and function. There is no mitral valve regurgitation. There is no mitral valve stenosis. Pulmonic Valve The pulmonic valve is likely normal. Tricuspid Valve Normal tricuspid valve structure and function. There is no tricuspid valve regurgitation. Tricuspid regurgitation envelope is inadequate for calculation of right ventricular systolic pressure. Normal right atrial pressure. Great Vessels All visible segments of the aorta are normal in size. The visualized portions of the pulmonary artery and branches are normal. Venous The inferior vena cava is normal in size and collapses greater than 50% with inspiration. Pericardium/Pleural There is no evidence of pericardial effusion. Prior Study Comparison No prior study available for comparison. Measurements 2D Linear Measurements IVSd: 0.90 0.6-0.9/0.6-1.0 cm LVIDd: 4.55 3.9-5.3/4.2-5.9 cm LVIDd Index: 2.50 2.4-3.2/2.2-3.1 cm/m2 LVIDs: 2.87 2.0-3.6 cm LVPWd: 0.71 0.7-1.1 cm Ao Root: 2.80 2.1-3.5 cm LA Diam: 3.30 2.7-3.8/3.0-4.0 cm LAIDs Index: 1.81 1.5-2.3 cm/m2 LV Mass: 144.42 67-162/88-224 g LV Mass Index: 79.35 43-95/49-115 g/m2 LVOT Diam: 2.00 3.0+(-)1.3 cm Mitral Valve MV Pk E: 0.94 MV PK A: 0.69 MV Decel Time: 187.00 E/A: 1.40 E'Lateral: 13.70 E'Medial: 8.92 E/E' Med: 10.60 E/E' Lat: 6.90 PHT: 55.00 MVA PHT: 4.00 Decel Woods: 5.03 Aortic Valve AoV Pk Rene: 1.72 AoV Mn Rene: 1.12 AoV VTI: 0.35 AoV Pk Grad: 12.00 Aov Mn Grad: 6.00 OBED Cont.VTI: 2.03 LVOT LVOT Pk Rene: 1.12 LVOT Mn Rene: 0.76 LVOT VTI: 0.22 LVOT Pk Grad: 5.00 LVOT Mn Grad: 3.00 LVOT Diam: 2.00 LVOT Area: 3.14 Diastolic Function MV Pk E: 0.94 MV Pk A: 0.69 E/A: 1.40 E'Medial: 8.92 E/E' Med: 10.60 E' Laterial: 13.70 E/E' Lat: 6.90 Right Ventricle TAPSE (mm): 23.50 TVS' Rene: 11.70 Tricuspid Valve TR Pk Rene: 1.77 TR Pk Grad: 13.00 Great Vessels Aorta Ao Root-2D: 2.80 2.0-3.7 cm Ao Asc: 3.10 2.1-3.4 cm Updated in Other Vendor System with Status of Final Bryan Hawkins MD electronically signed on 12/24/2020 9:34:54 AM with status of Final
[2020-12-23] MEDS: LORazepam 0.5 MG TABLET PO (16:49)
[2020-12-23] MEDS: Escitalopram Oxalate 5 MG TABLET PO (16:49)
[2020-12-23] MEDS: 0.9 % Sodium Chloride Flush 3 ML SYRINGE IVFLUSH (16:49)
[2020-12-23] MEDS: Aspirin Enteric Coated 81 MG TABLET.DR PO (16:49)
[2020-12-23] MEDS: Atorvastatin Calcium 20 MG TABLET PO (20:06)
[2020-12-24 00:35] VITALS: BP 124/73; PULSE 74; RESP 16; TEMP 36.1; O2SAT 98
[2020-12-24 04:00] VITALS: BP 120/69; PULSE 72; RESP 18; TEMP 36.3; O2SAT 95
[2020-12-24 07:51] VITALS: BP 124/80; PULSE 79; RESP 18; TEMP 36.6; O2SAT 98
[2020-12-24] MEDS: 0.9 % Sodium Chloride Flush 3 ML SYRINGE IVFLUSH (08:38)
[2020-12-24] MEDS: Aspirin Enteric Coated 81 MG TABLET.DR PO (08:38)
[2020-12-24] MEDS: Escitalopram Oxalate 5 MG TABLET PO (08:38)
[2020-12-24 11:41] VITALS: BP 130/70; PULSE 74; RESP 16; TEMP 36.4; O2SAT 97
[2020-12-24] MEDS: Ibuprofen 600 MG TABLET PO (14:11)
[2020-12-24 15:26] VITALS: BP 135/76; PULSE 70; RESP 18; TEMP 36.6; O2SAT 97
--- NOTE | 2020-12-24 15:38 | MHC.CM.PN ---
PATIENT IS DISCHARGED HOME TODAY - SELF CARE. RN AWARE OF PLAN.
--- NOTE | 2020-12-24 15:45 | PM.DS ---
DS: Providers Provider Date of Service: 12/24/20 Date of admission: 12/22/20 17:56 Date of discharge: 12/24/20 Primary care physician: Yanelis Mondragon MD Consults: 12/22/20 18:14 Consult to Neurology Routine Consulting Provider: [facility] Reason for consultation: Left upper extremity weakness Has provider been notified: No DS: Diagnosis Discharge Diagnosis (1) Left arm weakness: Status: Acute DS: Summary Hospital Course Hospital Course: 45-year-old female with essentially no past medical history presents with approximately 14 hours or more of left-sided arm weakness.? She states it began while watching TV on the couch her arm felt ?weird?.? This persisted all evening.? 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 She noted throughout the day that she was unable to hold her sac and that male was falling out due to her left arm weakness.? She had 11:00 appointment with her PCP who sent her directly to the emergency room.? In the emergency room she was found to have left-sided weakness; CT angio head and neck demonstrates eccentric mural thickening and of the proximal V2 segment of the left vertebral artery.? Differential diagnosis includes atheromatous plaque or arterial dissection.? ER physician placed a call to both Neurology and vascular surgery; neurology recommended aspirin 325 daily and will follow in a.m..? Vascular surgery stated there was no indication for intervention.? At this point in time her deficit is stable and she will be admitted to telemetry for further workup and consult to Neurology Hospital course MRI of brain done and demonstrated no acute lesions throughout. Over the course of 24-48 hours left arm strength gradually returning. Seen by Neurology who recommends aspirin daily along with statin . Seen by Physicall therapy who recommended outpatient follow up. Time Spent with Patient Time attestation: Total time spent providing and/or coordinating discharge services: Discharge coordination time: Greater than 30 minutes Quality: Stroke Does the patient have a stroke diagnosis?: No Physical Exam Vital Signs: Vital Signs: Last Vital Signs Temp 97.8 F 12/24/20 15:26 Pulse 70 12/24/20 15:26 Resp 18 12/24/20 15:26 BP 135/76 12/24/20 15:26 Pulse Ox 97 12/24/20 15:26 Body Mass Index 25.8 Const: Other: Anxious; no acute distress HENMT: Other: Mucous membranes are moist; oropharynx is clear. Palate is symmetrical Resp: Other: Clear to auscultation; no rales rhonchi or wheezes Cardio: Other: No S4; S1-S2; no S3 without murmurs rubs or gallops. Regular rate and rhythm GI: Other: Soft nontender nondistended with normoactive bowel sounds. No apparent hepatosplenomegaly Neuro: Other: Cranial nerves 2-12 grossly intact as tested. Pronator drift on the left has improved. Motor is 5/5 on the right UE and 4/5 left UE; 5/5 right lower extremity. Gait is steady but guarded. No cognitive deficit appreciated Extrem: Other: No edema bilaterally Discharge Plan Discharge Patient Disposition: Home, Self-Care Discharge Diagnosis: left arm weakness Referrals: Yanelis Keith MD [Primary Care Provider] - 1 Week Discharge Medications: New atorvastatin 20 mg Tablet 20 mg PO BEDTIME Qty: 30 RF: 0 aspirin 81 mg Tablet,Delayed Release (Dr/Ec) 81 mg PO DAILY Qty: 30 RF: 0 escitalopram oxalate 5 mg Tablet 5 mg PO DAILY Qty: 30 RF: 0 Continued cetirizine [Zyrtec] 10 mg Tablet 10 mg PO DAILY RF: 0 Discontinued ibuprofen [Motrin] 100 mg Tablet 200 mg PO Q6H PRN (Reason: Pain) RF: 0 Discharge Orders: Discharge Order (Routine); Ordered 12/24/20 Ordered By: Shun Paula Diet: advance to usual diet Activity on Discharge: As tolerated Stand Alone Forms: Patient Portal Discharge page, Work/School Release Care Plan Goals: Pentecostal of left arm movement Health Concerns: Smoke cessation Plan of Treatment: Outpatient physical therapy Assessment: Improved
== END 2020-12-24 16:52 | disposition home or self-care (01) | DRG 46 ==
LOC: HO.ED 16:30 → HO.EDOVER 18:05 → HO.S3 12-23 13:12
PROVIDERS: Admitting Provider Hospitalist; Emergency Provider Emergency Medicine; PCP Internal Medicine; Visit Provider Hospitalist
DX: I77.74 Dissection of vertebral artery (principal); F17.210 Nicotine dependence, cigarettes, uncomplicated; G83.24 Monoplegia of upper limb affecting left nondominant side; F41.1 Generalized anxiety disorder; Z71.6 Tobacco abuse counseling; Z20.822 Contact with and (suspected) exposure to COVID-19; Z79.899 Other long term (current) drug therapy
CPT/HCPCS: 36415; 70496; 70498; 70551; 80048; 80061; 80076; 80307; 81003; 82947; 83735; 84443; 84484; 85025; 85610; 85652; 85730; 86140; 87635; 93005; 93306; 97161; 97162; 99218; 99285

== ENCOUNTER 2020-12-30 13:27 | Outpatient (REF) | payer OTHER, SELFPAY ==
--- NOTE | ~2020-12-30 | CT_ITS ---
EXAMINATION: CT HEAD WITHOUT CONTRAST CLINICAL INFORMATION: Headache lesion. COMPARISON: None TECHNIQUE: Contiguous axial imaging was performed from the skull base to vertex without intravenous administration of contrast. This CT examination was performed using dose optimization techniques as appropriate, variously including the following: *Automated exposure control *Adjustment of mA and/or kV according to patient size (this includes techniques or standardized protocols for targeted exams where dose is matched to indication/reason for exam; i.e. extremities or head) *Use of iterative reconstruction technique DLP: 688 mGy-cm FINDINGS: There is no evidence of acute intracranial hemorrhage or territorial infarction. No abnormal mass effect or midline shift is seen. Rivera to white matter differentiation is well preserved. No extra-axial fluid collections are identified. The ventricles are normal in size. There is no abnormal attenuation within the brain parenchyma. The osseous structures and soft tissues are normal. The mastoid air cells and visualized portions of the paranasal sinuses are well aerated. CT/CT head/brain wo con IMPRESSION: No acute intracranial process seen.
== END 2020-12-30 13:28 | disposition home or self-care (01) ==
LOC: HO.CT 13:27
PROVIDERS: PCP Internal Medicine; Visit Provider Internal Medicine
DX: G81.94 Hemiplegia, unspecified affecting left nondominant side (principal)
CPT/HCPCS: 70450

== ENCOUNTER → 2021-01-03 08:46 | Outpatient (BNVA) | payer OTHER, SELFPAY | PROVIDERS: PCP Internal Medicine; Visit Provider Surgery Vascular Surgery ==

== ENCOUNTER 2021-01-06 07:51 | Outpatient (RCR) | payer OTHER, SELFPAY | END 2021-03-23 09:43 | disposition home or self-care (01) | LOC: HO.PT 07:51 | PROVIDERS: PCP Internal Medicine; Visit Provider Internal Medicine | DX: R29.898 Other symptoms and signs involving the musculoskeletal system (principal); M54.2 Cervicalgia; M54.9 Dorsalgia, unspecified ==

== ENCOUNTER 2021-01-06 10:09 | Outpatient (REF) | payer OTHER, SELFPAY ==
--- NOTE | ~2021-01-06 | CT_ITS ---
EXAMINATION: CT ANGIOGRAM CHEST CLINICAL INFORMATION: Subclavian thrombosis. COMPARISON: Comparable images of the aortic arch on CTA neck from 12/22/2020. TECHNIQUE: Multiple axial images were obtained through the chest after the administration of 70 mL of Omnipaque 350 intravenous contrast. 3D POSTPROCESSING: Multiple 3-D angiographic images were processed from the initial data set by the space technologist at the modality workstation under concurrent physician supervision. This CT examination was performed using dose optimization techniques as appropriate, variously including the following: *Automated exposure control *Adjustment of mA and/or kV according to patient size (this includes techniques or standardized protocols for targeted exams where dose is matched to indication/reason for exam; i.e. extremities or head) *Use of iterative reconstruction technique DLP: 206 mGy-cm FINDINGS: The ascending aorta is normal in caliber. No visible coronary calcification. The aortic arch is normal in caliber. No significant atherosclerosis. There is a four-vessel branching pattern with the left vertebral artery arising directly from the arch between the left common carotid and subclavian arteries. The great vessels are patent. The visible right common and left common carotid arteries are widely patent. The right subclavian artery appears widely patent. The left subclavian artery appears patent. There is some obscuration from the dense contrast bolus in the left subclavian vein but I do not see a hemodynamically significant lesion. The visible segments of vertebral artery are widely patent. The descending aorta is normal in caliber. There is no significant atherosclerotic disease. The upper abdomen is normal in caliber with mild atherosclerotic disease. The celiac, SMA, right and left renal artery origins are patent. No mediastinal adenopathy. No pericardial effusion. The lungs are clear. There is a peripherally enhancing lesion in segment 4A measuring 5.1 x 4.4 cm with discontinuous peripheral enhancement. No suspicious osseous lesions. CT/CT angio chest aorta IMPRESSION: No evidence of subclavian artery thrombosis. 5.1 cm relatively low-attenuation lesion in segment 4A of the liver with peripheral discontinuous enhancement. This is most likely a cavernous hemangioma though incompletely characterized on this arterial phase study. Consider further evaluation with ultrasound.
[2021-01-06] MEDS: iohexoL 350 MG/ML 100 ML INFUS..BTL IV (11:41)
== END 2021-01-06 10:10 | disposition home or self-care (01) ==
LOC: HO.CT 10:09
PROVIDERS: PCP Internal Medicine; Visit Provider Surgery Vascular Surgery
DX: I77.1 Stricture of artery (principal)
CPT/HCPCS: 71275; Q9967

== ENCOUNTER 2021-01-10 16:20 | Outpatient (REF) | payer OTHER, SELFPAY ==
--- NOTE | 2021-01-06 12:43 | MHC.PT.EP ---
[facility] [place] Office [place] Office [place] Office [address] Jose M Garcia [address] [phone] F: [phone] F: [phone] F: [phone] F: [phone] Physical Therapy Plan of Care Date of Evaluation: Date of Surgery: NA Diagnosis: CERVICAL DORSALGIA/Diagnoses Subclavian artery stenosis, left I77.1 Assessment: Pt IS 45 YO F REFERRED TO PT FROM DR DAVIES WITH CERVICAL DORSALGIA. Pt PRESENTS WITHOUT PAIN BUT INSTEAD A HEAVINESS IN L UE WITH INABILITY TO MOVE L UE AFTER INSIDIOUS ONSET ON 12/21..WAS ADMITTED TO [facility] X 2 DAYS WITH SIGNIF TESTING TO R/O NEURO ISSUE. FOUND TO HAVE PLAQUE IN VERTEBRAL ARTERY (ALTHOUGH ? IF THIS IS THE SOURCE PER MD NOTES). Pt HAS SEEN VASCULAR MD AND FOUND TO HAVE SIGNIF DIFF IN BP READINGS PER ARM SO IS NOW TO HAVE FURTHER TESTING TODAY AND NEXT SATURDAY WITH FU WITH PCP ON 01/11. SEEMS PRUDENT TO AWAIT PT TREATMENT UNTIL FURTHER DIAGNOSIS IS MADE TO HELP DETERMINE SOURCE OF SXS. Pt TO CALL BACK AFTER APPT WITH PCP ON 01/11 Frequency and Duration: The patient will be seen 2X/WK X 6 WKS Short Term Goals: 1. I HEP FOR L UE ROM AND STRENGTH TRNG 2. SHORT TERM GOALS TO BE SET FOR ROM AND STRENGTH AFTER RE-REFERRED WITH DX 3. 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 ROM L UE WNLS 2. STRENGTH L UE WNLS 3. RTW Treatment Plan: Modalities to reduce pain, spasms and effusion. Manual therapy to restore motion and function. Therapeutic exercise to improve strength and flexibility. Neuromuscular re-education for posture and balance. Therapeutic activities to return to functional activities of daily living. Electronically signed by: YAJAIRA FERNÁNDEZ PT Please sign and return to therapist. Thank you for your referral.
--- NOTE | ~2021-01-10 | MR_ITS ---
EXAMINATION: MR ANGIOGRAPHY BRAIN WITHOUT CONTRAST MR ANGIOGRAPHY NECK WITHOUT CONTRAST CLINICAL INFORMATION: Vertebral artery dissection. COMPARISON: CT head from 12/30/2020. CTA head and neck from 12/22/2020. TECHNIQUE: 3D fkgh-gl-pcigeg MR angiography was performed through the brain without the use of intravenous contrast. Axial 2D cfdg-zy-ggpcvf of the neck and coronal 3D xbja-wv-beincr of the neck were performed. 3D postprocessing including acquisition of multiplanar MIP reformats are obtained at the technologist workstation and utilized for image interpretation. Stenoses are assessed in accordance with NASCET criteria unless otherwise indicated. Additional fat saturated T1 axial imaging of the neck was obtained utilizing dissection protocol. FINDINGS: Head MRA: Normal flow-related signal within the anterior circulation without evidence of focal stenosis or occlusion of the intradural internal carotid, middle cerebral, or anterior cerebral arteries. Fenestration of the proximal basilar artery. Otherwise, normal flow-related signal within the posterior circulation without evidence of focal stenosis or occlusion of the intradural vertebral, basilar, superior cerebellar, or posterior cerebral arteries. No demonstrated intradural aneurysms. No additional significant abnormalities on limited evaluation of the intracranial structures. Neck MRA: Normal contour and caliber of the aortic arch. Classic 3 vessel branching pattern of the aortic arch. Normal flow-related signal within the bilateral common carotid arteries, the carotid bulbs, and the cervical segments of the internal carotid arteries. Flow related signal is maintained within the bilateral V1-V3 vertebral arteries. Similar to prior exam, there is irregularity of the lumen of the V2 segment of the left vertebral artery at the level of C4. There is inherently T1 hyperintense cuffing of the vertebral artery along its medial wall at this level. This irregularity leads to less than 50% stenosis. No additional stenoses of the cervical segments of the vertebral arteries. Moderate multilevel degenerative spondyloarthropathy of the cervical spine, better demonstrated on recent CT.. No demonstrated significant abnormalities of the soft tissues of the neck on limited evaluation. MR/MR angio neck wo/w con IMPRESSION: 1. Similar degree of irregularity of the lumen of the V2 segment of the left vertebral artery. Findings remain consistent with small volume intramural blood products in the setting of dissection of the left vertebral artery. There remains less than 50% stenosis of the left vertebral artery. No demonstrated evidence of propagation of this dissection when compared to prior exam. 2. Normal MRA of the head.
--- NOTE | ~2021-01-10 | MR_ITS ---
EXAMINATION: MR ANGIOGRAPHY BRAIN WITHOUT CONTRAST MR ANGIOGRAPHY NECK WITHOUT CONTRAST CLINICAL INFORMATION: Vertebral artery dissection. COMPARISON: CT head from 12/30/2020. CTA head and neck from 12/22/2020. TECHNIQUE: 3D rduq-dp-irehfj MR angiography was performed through the brain without the use of intravenous contrast. Axial 2D qfse-lo-rcqesa of the neck and coronal 3D jzsh-nr-kjfrhk of the neck were performed. 3D postprocessing including acquisition of multiplanar MIP reformats are obtained at the technologist workstation and utilized for image interpretation. Stenoses are assessed in accordance with NASCET criteria unless otherwise indicated. Additional fat saturated T1 axial imaging of the neck was obtained utilizing dissection protocol. FINDINGS: Head MRA: Normal flow-related signal within the anterior circulation without evidence of focal stenosis or occlusion of the intradural internal carotid, middle cerebral, or anterior cerebral arteries. Fenestration of the proximal basilar artery. Otherwise, normal flow-related signal within the posterior circulation without evidence of focal stenosis or occlusion of the intradural vertebral, basilar, superior cerebellar, or posterior cerebral arteries. No demonstrated intradural aneurysms. No additional significant abnormalities on limited evaluation of the intracranial structures. Neck MRA: Normal contour and caliber of the aortic arch. Classic 3 vessel branching pattern of the aortic arch. Normal flow-related signal within the bilateral common carotid arteries, the carotid bulbs, and the cervical segments of the internal carotid arteries. Flow related signal is maintained within the bilateral V1-V3 vertebral arteries. Similar to prior exam, there is irregularity of the lumen of the V2 segment of the left vertebral artery at the level of C4. There is inherently T1 hyperintense cuffing of the vertebral artery along its medial wall at this level. This irregularity leads to less than 50% stenosis. No additional stenoses of the cervical segments of the vertebral arteries. Moderate multilevel degenerative spondyloarthropathy of the cervical spine, better demonstrated on recent CT.. No demonstrated significant abnormalities of the soft tissues of the neck on limited evaluation. MR/MR angio head wo con IMPRESSION: 1. Similar degree of irregularity of the lumen of the V2 segment of the left vertebral artery. Findings remain consistent with small volume intramural blood products in the setting of dissection of the left vertebral artery. There remains less than 50% stenosis of the left vertebral artery. No demonstrated evidence of propagation of this dissection when compared to prior exam. 2. Normal MRA of the head.
== END 2021-01-10 16:21 | disposition home or self-care (01) ==
LOC: HO.MRI 16:20
PROVIDERS: Visit Provider Internal Medicine
DX: I77.1 Stricture of artery (principal); I77.74 Dissection of vertebral artery; R29.898 Other symptoms and signs involving the musculoskeletal system
CPT/HCPCS: 70544; 70549; 97163; 97535

== ENCOUNTER → 2021-01-12 14:39 | Outpatient (BNVA) | payer OTHER, SELFPAY | PROVIDERS: PCP Internal Medicine; Visit Provider Surgery Vascular Surgery ==

== ENCOUNTER 2021-02-17 06:20 | Outpatient (REF) | payer OTHER, SELFPAY | END 2021-02-17 06:21 | disposition home or self-care (01) | LOC: HO.LAB 06:20 | PROVIDERS: PCP Internal Medicine; Visit Provider Psychiatry & Neurology Neurology | DX: Z13.89 Encounter for screening for other disorder (principal) ==

== ENCOUNTER 2023-02-13 20:25 | Emergency (ER) | payer OTHER, SELFPAY ==
--- NOTE | 2023-02-13 | ECG_ITS ---
Test Reason : OVERDOSE Blood Pressure : / mmHG Vent. Rate : 081 BPM Atrial Rate : 081 BPM P-R Int : 140 ms QRS Dur : 076 ms QT Int : 402 ms P-R-T Axes : 012 050 023 degrees QTc Int : 466 ms Normal sinus rhythm Normal ECG When compared with ECG of 22-DEC-2020 12:36, T wave amplitude has decreased in Anterior leads Referred By: Marie Maxwell Electronically Signed By:JEFF MALLOY MD
[2023-02-13 20:48] VITALS: BP 147/82; BP 228/120; PULSE 130; PULSE 95; RESP 18; TEMP 37.1; O2SAT 98; BMI 25.1
[2023-02-13 20:50] VITALS: BP 147/82; PULSE 101; RESP 18; TEMP 36.8; O2SAT 96
[2023-02-13 21:03] LABS: Appearance Urine Clear; Color Urine Yellow; Glucose Urine UA Negative (Negative); Leukocyte Esterase Urine Negative (Negative); Nitrite Urine Negative (Negative); PH 5.5 (5.0-9.0); Specific Gravity - Urine <= 1.005 (1.005-1.025); Urine Blood Negative (Negative); Urine Ketones Negative (Negative); Urine Protein Negative (Neg-Trace)
--- NOTE | 2023-02-13 21:26 | PC.NURSE ---
Pt's daughter at bedside. Pt and daughter went back and forth about current situation. Pt made many statements along the lines of I can't do it anymore and everything would be better if I was gone. Pt stated she wanted to go to sleep and not wake up. Daughter is concerned for pt's safety and attempted to explain to pt that suicide is not an appropriate answer for her problems. Pt does not see how it is a problem. Pt doews not think she needs to stay in hospital, I explained that pt is on a section 12, which means there is a 72 hour hold. Pt was not happy about this, concerned about having to work. Daughter left and pt began speaking with Arlet HERNANDEZ. Pt is now calm and cooperative, speaking and reacting appropriately. Pt has been changed to hospital attire, belongings secured in locker 9. Bloodwork and urines sent. Sitter at the bedside. Pt waiting ED provider at this time.
[2023-02-13 21:27] LABS: MANUAL DIFF FLAG NO
[2023-02-13 21:28] LABS: Basophils Absolute Auto 0.1 X10*3/uL (0.0-0.2); Basophils Percent Auto 0.8 % (0-2); Eosinophils Absolute Auto 0.3 X10*3/uL (0.0-0.4); Eosinophils Percent Auto 3.1 % (0-4); Hematocrit 41.5 % (37.0-47.0); Hemoglobin 14.6 g/dl (12.0-16.0); Imm Gran Abs Auto 0.09 X10*3/uL (0.00-0.03); Imm Gran Pct Auto 1.1 % (0.0-0.4); Lymphocytes Absolute Auto 2.7 X10*3/uL (1.2-4.9); Lymphocytes Percent Auto 32.7 % (20-40); Mean Corpuscular HGB Conc 35.2 g/dl (31.0-35.0); Mean Corpuscular Hemoglobin 32.2 pg (27.0-33.0); Mean Corpuscular Volume 91.4 fL (80.0-98.0); Mean Platelet Volume 9.2 fL (9.4-12.3); Monocytes Absolute Auto 0.8 X10*3/uL (0.1-1.2); Neutrophils Absolute Auto 4.5 x10*3/uL (2.0-8.3); Neutrophils Percent Auto 53.3 % (45-73); Platelet Count 288 X10*3/uL (160-400); Red Blood Count 4.54 X10*6/uL (4.20-5.50); Red Cell Distribution Width 13.1 % (11.0-16.0); White Blood Count 8.4 X10*3/uL (4.8-10.8)
--- NOTE | 2023-02-13 21:39 | ED_ITS ---
HPI - Overdose General Chief Complaint: Overdose Stated Complaint: SI Overdose - Hypertensive Time Seen by Provider: 02/13/23 21:31 Source: patient and EMS Mode of arrival: EMS Limitations: no limitations History of Present Illness HPI Narrative: Patient comes to the emergency room complaining of medication overdose. Patient states that approximately 1 and half to 2 hours ago, patient purposely took 10 tablets of Lexapro which are being prescribed to her. Patient states that she went to say goodbye to her family in case that she did not wake up. Patient states that she feels very overwhelmed at home, is taking care of everybody but no 8 takes care of her. Also states that no one would miss her if she was gone. Pateint had an argument with family, states that she is upset that worked they are lying to her about her working hours and reducing her paycheck. Patient denies homicidal ideation Related Data Home Medications Medication Instructions Recorded Confirmed Aleve 440 mg PO Q6H PRN Pain 02/13/23 02/13/23 Claritin 10 mg PO ONCE 02/13/23 02/13/23 Previous Rx's Medication Instructions Recorded escitalopram oxalate 10 mg tablet 10 mg PO DAILY 90 days #90 tabs 11/21/22 Allergies Allergy/AdvReac Type Severity Reaction Status Date / Time strawberry [STRAWBERRY] Allergy Mild CANKER Verified 04/24/22 13:46 SORES oranges Allergy Intermediate canker Uncoded 04/24/22 13:46 sores tomatoes Allergy Intermediate canker Uncoded 04/24/22 13:46 sores Review of Systems 2 Review of Systems: Constitutional : No Weight loss, No Fever, No Chills, No Night Sweats, No Fatigue, No Malaise ENT/Mouth : No Hearing loss, No Ear Pain, No Nasal Congestion, No Sinus Pain, No Hoarseness, No sore throat, No Rhinorrhea, No Swallowing Difficulty Eyes: No Eye Pain, No Swelling, No Redness, No Foreign Body, No Discharge, No Vision Changes Cardiovascular : No Chest Pain, No SOB, No Dyspnea on Exertion, No Orthopnea, No Edema, No Palpitations Respiratory : No Cough, No Sputum, No Wheezing, No Smoke Exposure, No Dyspnea Gastrointestinal : No Nausea, No Vomiting, No Diarrhea, No Constipation, No abdominal Pain, No Hematochezia, No Melena Genitourinary : no irregular bleeding, No Dysuria, No Urinary Frequency, No Hematuria, No Urinary Incontinence, No Urgency, No Flank Pain, No Urinary Flow Changes, No Hesitancy Musculoskeletal : No joint pain, No Myalgias, No Joint Swelling Skin : No Skin Lesions, No rash Neuro : No Weakness, No Numbness, No Paresthesias, No Loss of Consciousness, No Dizziness, No Headache Psych : Complaining of feeling anxious, depressed, overwhelmed, positive SI, no HI Heme/Lymph: No Bruising, No Bleeding,No Lymphadenopathy Endocrine : No Polyuria, No Polydipsia, No Temperature Intolerance [facility] Past Medical History Medical History Bronchitis Shoulder arthralgia KELSEA (generalized anxiety disorder) Upper back pain Neck pain Vertebral artery dissection Left arm weakness Elevated blood pressure reading without diagnosis of hypertension Insomnia KELSEA (generalized anxiety disorder) Left hemiparesis Conjunctivitis History of asthma History of depression Hx of anxiety disorder Surgical History Hx of ovarian cystectomy Family History Family History (Updated 04/24/22 @ 13:51 by Yanelis Mondragon MD) Mother Breast cancer, Onset Age: 46 Maternal Aunt Breast cancer Paternal Aunt Breast cancer Paternal Grandmother Breast cancer Sister Brain cancer Father Myocardial infarct Maternal Grandfather CVD (cardiovascular disease) Family/Other Substance abuse Mental problem Social History Social History Household Members: Children Housing: Apartment Do you presently have visiting nurse or other home services: No Alcohol intake: current Alcohol intake frequency: 3 or more drinks per day Alcohol type: beer Patient Tobacco Use Status: Current everyday Tobacco user Tobacco use type: Cigarette Cigarette Packs Per Day: 1 Cigarettes Per Day: 20 Smoked in Last 30 Days: Yes e-Cigarette/Vaping Use: Never Used Second Hand Smoke Exposure: No Use of substances other than those prescribed or required for medical reasons: No Advance Directives: No Advance Directives Information Provided: No Patient : No service: No Current occupational status: employed 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 Oriented X3. No acute distress. Eyes: Pupils equal, round and reactive to light. ENT: Pharynx normal. Neck: Normal inspection. Neck supple. No lymph nodes noted. No crepitus CVS: Normal heart rate and rhythm. Pulses normal. Normal S1 and S2 Respiratory: No respiratory distress. Breath sounds normal. No Wheezing. No rales Abdomen: Soft and nontender. No rigidity. No distention. Skin: Skin warm and dry. Normal skin color. Normal skin turgor. Extremities: No lower extremity edema. No Lacerations. No Rash Neuro: Oriented X 3. No motor deficit. No sensory deficit. Moving all extremities. No slurred speech. CN 2 through 12 grossly intact Psych: calm, cooperative, tearful Course Course Course Narrative: -patient is on a Section 12 that was started out by police department in the community -care team consult pending -physician observation started at 21:40 Medical Decision Making Medical Decision Making [facility] Narrative: -my interpretation of labs: Normal hematology, normal chemistry, urine analysis negative for UTI, negative for , negative for drugs of abuse, negative for salicylates and acetaminophen -care team consult pending Differential Diagnosis Differential Diagnoses: The differential diagnosis associated with the presentation includes (Anxiety, depression, SI attempt) Admission/Observation Consideration of admission/observation: Escalation of care including admission/observation considered (Patient is on a Section 12, disposition to be determined by the care team) Lab Data 02/13/23 21:22 02/13/23 21:22 Labs: Lab Results 02/13/23 02/13/23 02/13/23 Range/Units 20:53 21:22 22:30 WBC 8.4 (4.8-10.8) X10*3/uL RBC 4.54 (4.20-5.50) X10*6/uL Hgb 14.6 (12.0-16.0) g/dl Hct 41.5 (37.0-47.0) % MCV 91.4 (80.0-98.0) fL MCH 32.2 (27.0-33.0) pg MCHC 35.2 H (31.0-35.0) g/dl RDW 13.1 (11.0-16.0) % Plt Count 288 (160-400) X10*3/uL MPV 9.2 L (9.4-12.3) fL Immature Gran % (Auto) 1.1 H (0.0-0.4) % Neut % (Auto) 53.3 (45-73) % Lymph % (Auto) 32.7 (20-40) % [place] % (Auto) 9.0 (2-11) % Eos % (Auto) 3.1 (0-4) % Baso % (Auto) 0.8 (0-2) % Lymph # (Auto) 2.7 (1.2-4.9) X10*3/uL [place] # (Auto) 0.8 (0.1-1.2) X10*3/uL Eos # (Auto) 0.3 (0.0-0.4) X10*3/uL Baso # (Auto) 0.1 (0.0-0.2) X10*3/uL Abs Immat Gran (auto) 0.09 H (0.00-0.03) X10*3/uL Absolute Neuts (auto) 4.5 (2.0-8.3) x10*3/uL Absolute Nucleated RBC 0.000 (0.0-0.012) X10*3/uL Nucleated RBC % (auto) 0.0 (0.0-0.2) /100WBC Sodium 141 (135-145) mmol/L Potassium 3.8 (3.3-5.1) mmol/L Chloride 109 H (96-108) mmol/L Carbon Dioxide 23 (22-29) mmol/L Anion Gap 13 (12-20) BUN 9 (9-16) mg/dL Creatinine 0.67 (0.5-1.4) mg/dL Estim Creat Clear Calc 102.4 Estimated GFR > 60 Random Glucose 82 (60-115) mg/dL Calcium 8.9 (8.4-10.2) mg/dL Magnesium 1.9 (1.6-2.6) mg/dL Total Bilirubin 0.2 (0.0-1.0) mg/dL AST 20 (5-31) U/L ALT 14 (0-31) U/L Alkaline Phosphatase 48 (39-117) U/L Total Protein 7.0 (6.5-8.0) g/dL Albumin 4.0 (3.5-5.0) g/dL Urine Color Yellow Urine Appearance Clear Urine pH 5.5 (5.0-9.0) Ur Specific [place] <= 1.005 (1.005-1.025) Urine Protein Negative (Neg-Trace) mg/dL Urine Glucose (UA) Negative (Negative) mg/dL Urine Ketones Negative (Negative) mg/dL Urine Blood Negative (Negative) Urine Nitrite Negative (Negative) Ur Leukocyte Esterase Negative (Negative) Urine Test NEGATIVE (NEGATIVE) Salicylates < 5.0 L (15-30) mg/dL Urine Opiates Screen Not Detected (Not Detect) Urine Fentanyl Screen Not Detected (Not Detect) Acetaminophen < 3 (<30) mcg/mL Ur Barbiturates Screen Not Detected (Not Detect) Ur Phencyclidine Scrn Not Detected (Not Detect) Ur Amphetamines Screen Not Detected (Not Detect) U Benzodiazepines Scrn Not Detected (Not Detect) Urine Cocaine Screen Not Detected (Not Detect) U Marijuana (THC) Screen Not Detected (Not Detect) Ethyl Alcohol 227 mg/dL Discharge Plan Discharge Clinical Impression: Suicidal ideation Patient Disposition: Still a Patient Prescriptions: No Action escitalopram oxalate 10 mg tablet 10 mg PO DAILY 90 Days Qty: 90 1RF Aleve 220 mg tablet 440 mg PO Q6H PRN (Reason: Pain) Claritin 10 mg tablet 10 mg PO ONCE
[2023-02-13 21:43] LABS: Alanine Aminotransferase 14 U/L (0-31); Alkaline Phosphatase 48 U/L (39-117); Anion Gap 13 (12-20); Aspartate Amino Transferase 20 U/L (5-31); Bilirubin Total 0.2 mg/dL (0.0-1.0); Blood Urea Nitrogen 9 mg/dL (9-16); Calcium 8.9 mg/dL (8.4-10.2); Carbon Dioxide 23 mmol/L (22-29); Chloride 109 mmol/L (96-108); Creatinine Clr Calc Pharmacy 102.4; Estimated Glomerular Filt Rate > 60; Ethanol 227 mg/dL; Glucose Random 82 mg/dL (60-115); Potassium 3.8 mmol/L (3.3-5.1); Sodium 141 mmol/L (135-145)
--- NOTE | 2023-02-13 21:56 | PC.NURSE ---
Spoke with Poison Control regarding patient and overdose protocols. Suggestion to watch patient for Serotonin syndrome symptoms and if she develops any to give benzos. Recommended to get Q2 hour EKGs X3 to monitor QTC. Recommend to keep K greater than 4 and Mag greater than 2. Check BMP in 4 hours to check for JESSICA/Acidosis.
[2023-02-13 21:59] LABS: UPreg QC Valid YES; Urine Pregnancy NEGATIVE (NEGATIVE)
[2023-02-13 22:00] VITALS: BP 115/64; PULSE 79; RESP 14; O2SAT 95
[2023-02-13 22:09] LABS: Amphetamine Screen Urine Not Detected (Not Detect); Barbiturates, Urine Not Detected (Not Detect); Benzodiazepines Screen Urine Not Detected (Not Detect); Cannabinoid Screen Urine Not Detected (Not Detect); Cocaine Screen Urine Not Detected (Not Detect); Fentanyl, urine Not Detected (Not Detect); Opiate Screen Urine Not Detected (Not Detect); Phencyclidine Screen Urine Not Detected (Not Detect)
--- NOTE | 2023-02-13 22:24 | PC.NURSE ---
Med Rec completed at this time.
[2023-02-13 22:44] LABS: Magnesium 1.9 mg/dL (1.6-2.6)
[2023-02-13 22:55] LABS: Acetaminophen LAB < 3 mcg/mL (<30); Salicylate < 5.0 mg/dL (15-30)
[2023-02-14 06:26] VITALS: BP 148/84; PULSE 88; RESP 16; TEMP 36.7; O2SAT 95
--- NOTE | 2023-02-14 07:47 | PC.NURSE ---
Spoke with pts daughter who requests that pt continue with inpatient care and not be released. pt with increased risk to herself, making threatening calls to others that she will kill herself and they will find her Mary
[2023-02-14 08:18] LABS: COVID-19 Test Negative (Negative); IDNOW Serial# 08D9AD1C
--- NOTE | 2023-02-14 09:19 | MHC.CARE ---
Statewide bedsearch conducted, [facility] Referral sent to [facility], [facility], [facility], [facility] and [facility]. RAD Team to f/u with each hospital to ensure they received the referral and to see the outcome.
--- NOTE | 2023-02-14 10:13 | MHC.CARE ---
Addendum entered by Catina Fam 02/14/23 10:43: [facility] requested pt arrive by 2pm Original Note: Pt was accepted for [facility] Admission to [facility]- Accepting Doctor- Dr. Forte Address- [address] [place] [id number] ETA-TBD, waiting on a callback from [facility]
--- NOTE | 2023-02-14 12:24 | PC.NURSE ---
pt does not want staff to speak with her daughter Rosi, pt has allowed staff to speak with her other daughter Asya
--- NOTE | 2023-02-14 14:09 | PC.NURSE ---
pts daughter, Asya, here to visit.
== END 2023-02-14 16:30 ==
PROVIDERS: Emergency Medicine; Emergency Provider Emergency Medicine Emergency Medical Services; PCP Internal Medicine
DX: T43.222A Poisoning by selective serotonin reuptake inhibitors, intentional self-harm, initial encounter (principal); R45.851 Suicidal ideations; Y92.9 Unspecified place or not applicable; Z63.8 Other specified problems related to primary support group; Z11.52 Encounter for screening for COVID-19; Z20.822 Contact with and (suspected) exposure to COVID-19; Z79.899 Other long term (current) drug therapy
CPT/HCPCS: 36415; 80053; 80143; 80179; 80307; 81003; 81025; 83735; 85025; 87635; 93005; 99285; S9485

== ENCOUNTER 2023-12-25 15:51 | Outpatient (AMB) | payer OTHER, SELFPAY ==
--- NOTE | 2023-12-25 16:04 | MHC.PC.OV ---
Vital Signs 12/25/23 16:05 Height 5 ft 8 in Weight 209 lb BMI 31.8 BP 128/80 Blood Pressure Location Lt brachial Position Sitting Intake Visit Reasons: PE Intake Note: Patient here for a physical exam It Support Engineer Required: No Accompanied by: Self / Same As Patient Allergies strawberry [STRAWBERRY] Allergy (Mild, Verified 12/25/23 16:23) CANKER SORES oranges Allergy (Intermediate, Uncoded 12/25/23 16:23) canker sores tomatoes Allergy (Intermediate, Uncoded 12/25/23 16:23) canker sores Medication List - Last Reconciled 12/25/23 by Yanelis Mondragon MD [Aleve 440 mg PO Q6H PRN] buspirone 7.5 mg PO BID [Claritin 10 mg PO ONCE] escitalopram oxalate 20 mg PO DAILY hydroxyzine pamoate 50 mg PO BID PRN naltrexone 50 mg PO QAM trazodone 100 mg PO BID Tobacco use date assessed: 12/25/23 Dental Screening Dental Screen Date: 12/25/23 Did you have a dental visit in the last 12 months?: No Did you have a dental problem in the last 6 months where you did not have access to dental care?: No Was dental information given to patient?: Patient has dentist HPI HPI Comments History of Present Illness Details This is a 48-year-old female that comes for her physical exam. Mammogram done over 2 years ago. Has not had a Pap smear in about 4 years and will call for an appointment. Declines flu vaccine. Has never had a colonoscopy and will be refer through open access. She is obese with a BMI of 31.8 and was advised to do diet and exercise to reach BMI goal less than 30. [facility] Medical History (Updated 12/25/23 @ 20:46 by Yanelis Mondragon MD) Subclavian artery stenosis, left Bronchitis Shoulder arthralgia KELSEA (generalized anxiety disorder) Upper back pain Neck pain Vertebral artery dissection Left arm weakness Elevated blood pressure reading without diagnosis of hypertension Insomnia KELSEA (generalized anxiety disorder) Left hemiparesis Conjunctivitis History of asthma History of depression Hx of anxiety disorder Surgical History Hx of ovarian cystectomy Family History (Updated 12/25/23 @ 16:28 by Yanelis Mondragon MD) Mother Breast cancer, Onset Age: 46 Maternal Aunt Breast cancer Paternal Aunt Breast cancer Paternal Grandmother Breast cancer Sister Brain cancer Father Myocardial infarct Maternal Grandfather CVD (cardiovascular disease) Family/Other Substance abuse Mental problem Social History (Updated 12/25/23 @ 16:29 by Yanelis Mondragon MD) Household Members: Children Housing: Apartment Do you presently have visiting nurse or other home services: No Alcohol intake: former Patient Tobacco Use Status: Current everyday Tobacco user Tobacco use type: Cigarette Cigarette Packs Per Day: 1 Cigarettes Per Day: 20 e-Cigarette/Vaping Use: Never Used Second Hand Smoke Exposure: No service: No Current occupational status: employed 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 1. Little interest or pleasure in doing things: several days 2. Feeling down, depressed, or hopeless: several days 3. Trouble falling or staying asleep, or sleeping too much: not at all 4. Feeling tired or having little energy: not at all 5. Poor appetite or overeating: not at all 6. Feeling bad about yourself - or that you are a failure or have let yourself or your family down: several days 7. Trouble concentrating on things, such as reading the newspaper or watching television: not at all 8. Moving or speaking so slowly that other people could have noticed. Or the opposite - being so fidgety or restless that you have been moving around a lot more than usual: not at all 9. Thoughts that you would be better off or of hurting yourself in some way: not at all Total score: 3 Depression Screening Interpretation: Positive Depression Screening Follow-up: Existing condition and Follow-up Visit Requested Depression Screening Done: Yes 65105 - PHQ-9 Billing: Yes Source: Developed by Drs. Hermes Flores, Alexsandra Gutierrez, Meir Huitron and colleagues, with an educational malgorzata from [employer]. Thrive Questionnaire Date Thrive assessed: 12/25/23 I am a: Patient What is your living situation today?: I have a steady place to live Within the past 12 months, did the food you bought not last and you didn't have the money to get more?: Never true Within the past 12 months, did you worry whether your food would run out before you got money to buy more?: Never true Do you have trouble paying for medicines?: No Do you have trouble getting transportation to medical appointments?: No Do you have trouble paying your heating and electricity bill?: No Do you have trouble taking care of your child, family member or friend?: No Do you have trouble with day-to-day activities such as bathing, preparing meals, shopping, managing finances, etc.?: No Are you currently unemployed and looking for a job?: No Are you interested in more education?: No Please select the resources that you would like help with: None Currently or been in a relationship where the following occur: No concerns reported THRIVE Score: 0 AUDIT C Alcohol Use Questionnaire (AUDIT-C) 1. How often do you have a drink containing alcohol?: Never Total Score: 0 Score Reviewed/Action Taken: No KELSEA-7 AMB Questionnaire KELSEA-7 Date KELSEA - 7 assessed: 12/25/23 Feeling nervous, anxious, or on edge: 1 = Several days Not being able to stop or control worryin = Several days Worrying too much about different things: 1 = Several days Trouble relaxin = Not at all Being so restless that it is hard to sit still: 0 = Not at all Becoming easily annoyed or irritable: 0 = Not at all Feeling afraid as if something awful might happen: 0 = Not at all Total KELSEA-7 score (0-4 normal; 5-9 mild; 10-14 moderate; 15-21 severe): 3 Source: Developed by Drs. Hermes Flores, Alexsandra Gutierrez, Meir Huitron and colleagues, with an educational malgorzata from [employer]. KELSEA-7 Assessment Billing KELSEA-7 Assessment Tool: KELSEA-7 Assessment 92985 Review of Systems Const All systems reviewed & are unremarkable except as noted in HPI and below Card Denies chest pain at rest, Denies chest pain with activity, Denies edema, Denies irregular heart rhythm, Denies claudication, Denies dyspnea, Denies dyspnea on exertion, Denies orthopnea, Denies paroxysmal nocturnal dyspnea and Denies slow heart rate Resp Denies cough, Denies dyspnea and Denies dyspnea on exertion GI Denies abdominal pain, Denies change in bowel habits, Denies excessive flatus, Denies nausea and Denies vomiting Physical exam (Primary Care) Vital Signs: Last Vital Signs BP 128/80 12/25/23 16:05 BMI result Body Mass Index 31.8 BMI Assessment/Plan discussion: High BMI High, discussed plan: lifestyle, weight reduction, dietary and physical activity Tobacco/Smoking Status: Tobacco use Status Tobacco use date assessed 12/25/23 12/25/23 16:12 Patient Tobacco Use Status Current everyday Tobacco 12/25/23 16:29 Tobacco use type Cigarette 12/25/23 16:29 e-Cigarette/Vaping Use Never Used 12/25/23 16:29 Are you ready to quit: No Tobacco cessation counseling provided: Yes Items discussed: Nicotine replacement and QuitWorks Relapse Prevention: discussed the importance of a supportive environment, discussed extending NRT, discussed negative mood or depression after quitting, weight gain after smoking is common and discussed dietary, exercise and/or lifestyle changes Number of minutes spent counselin PHQ-9: PHQ-9 Score PHQ-9: Total score 3 12/25/23 16:26 Depression Screening Interpretation: Positive Depression Screening Follow-up: Existing condition and Follow-up Visit Requested Thrive Assessment: Date of Thrive Assessment Date Thrive assessed 12/25/23 12/25/23 16:12 Currently or been in a relationship where the following occur: No concerns reported HENMT Head: Yes normal to inspection, Yes normocephalic and Yes atraumatic Ears: external ears normal Eyes General: appearance normal, both eyes and all related structures Eyelids: Yes eyelids normal Conjunctivae: conjunctivae normal Neck Neck: Yes normal visual inspection and Yes supple Resp Effort & Inspection: normal respiratory effort Auscultation: clear to auscultation bilaterally Cardio Jugular venous distension: no JVD Rate: regular rate Rhythm: regular rhythm Heart sounds: S1 normal heart sound present and S2 normal heart sound present GI Inspection: Yes normal to inspection Palpation (GI): Soft to palpation and nontender Auscultation: normal bowel sounds Skin General skin exam: no rashes or lesions noted Neuro General: no focal motor deficits Extrem General: Yes full ROM Psych Appearance: grossly normal Office Procedures Flu Questionnaire Does the patient have a severe egg allergy?: No Immunizations Fluarix Triv [id number] (PF) 45 mcg (15 mcg x 3)/0.5 mL IM syringe Performing Provider: Yanelis Mondragon MD Performing Location[facility] [place] [facility] Documented (not given) by: HALLE Yoon on 12/25/23 16:12 Reason Not Given: Patient Refused Coding Level of Care Code Est Pt Prev Care 40-64y(02901) Diagnoses Physical exam Z00.00 Additional Codes KELSEA-7 Assessment Billing - KELSEA-7 Assessment Tool: KELSEA-7 Assessment 55974 ([id number]) Time Spent (min) 30 Assessment & Plan Assessment & Plan (1) Physical exam: Code(s): Z00.00 - Encounter for general adult medical examination without abnormal findings Category: Medical Plan: Repeat in a year. Orders: Orders Influenza [id number] Immunization Today Z23 - Encounter for immunization MM tomosynthesis screening BI Today Z12.31 - Encounter for screening mammogram for malignant neoplasm of breast Lipid Panel Today Z00.00 - Encounter for general adult medical examination without abnormal findings Thyroid Stimulating Hormone Today E66.811 - Obesity, class 1, Z68.31 - Body mass index [BMI] 31.0-31.9, adult Complete Blood Count Auto Diff Today E66.811 - Obesity, class 1, Z68.31 - Body mass index [BMI] 31.0-31.9, adult Comprehensive [place]. Panel Fast Today Z00.00 - Encounter for general adult medical examination without abnormal findings Referrals Open Access Screening Colonoscopy Referral Z12.12 - Encounter for screening for malignant neoplasm of rectum
[2023-12-25 16:05] VITALS: BP 128/80; BMI 31.8
== END 2023-12-25 16:50 | disposition home or self-care (01) ==
PROVIDERS: PCP Internal Medicine; Visit Provider Internal Medicine
DX: Z00.00 Encounter for general adult medical examination without abnormal findings (principal); Z23 Encounter for immunization

== ENCOUNTER → 2023-12-25 15:51 | Outpatient (BNVA) | payer OTHER, SELFPAY | PROVIDERS: PCP Internal Medicine; Visit Provider Internal Medicine | DX: Z00.00 Encounter for general adult medical examination without abnormal findings (principal); Z28.21 Immunization not carried out because of patient refusal | CPT/HCPCS: 90471; 96127 ==

== ENCOUNTER 2024-02-11 14:17 | Outpatient (REF) | payer OTHER, SELFPAY ==
--- NOTE | ~2024-02-11 | MM_ITS ---
EXAMINATION: MM SCREENING DIGITAL BREAST TOMOSYNTHESIS, BILATERAL CLINICAL INFORMATION: Screening. Asymptomatic. COMPARISON: Mammography: No prior mammogram images are available for comparison. TECHNIQUE: Digital breast mammography with tomosynthesis is performed in both the craniocaudal and mediolateral oblique views along with computer-aided detection (CAD). FINDINGS: The breasts are heterogeneously dense, which may obscure small masses (ACR BI-RADS breast composition Category c). Left: 2 asymmetries lateral left breast middle and posterior depth on CC view. No suspicious calcifications or other abnormal findings. Right: Asymmetry superior breast posterior depth on MLO view. No suspicious calcifications or other abnormal findings. MM/MM tomosynthesis screening BI IMPRESSION: Additional imaging is recommended ASSESSMENT: BI-RADS BI-RADS 0 - Incomplete: Needs additional Imaging. RECOMMENDATION: 1. Additional views of the bilateral breasts 2. Targeted ultrasound if warranted after review of the additional views. 3. Radiology department staff will contact the patient for additional imaging. Additional Imaging required This examination should not preclude the clinical evaluation of a suspicious palpable abnormality. This patient's information was entered into a reminder system with a target due date for their next mammogram. Electronically signed by: Emma Gutiérrez DO 02/20/2024 01:47 PM [facility]
== END 2024-02-11 14:18 | disposition home or self-care (01) ==
LOC: HO.MAMMO 14:17
PROVIDERS: PCP Internal Medicine; Visit Provider Internal Medicine
DX: Z12.31 Encounter for screening mammogram for malignant neoplasm of breast (principal)
CPT/HCPCS: 77063; 77067

== ENCOUNTER → 2024-02-11 14:30 | Outpatient (BNV) | payer OTHER, SELFPAY | PROVIDERS: PCP Internal Medicine; Visit Provider Internal Medicine | DX: Z12.31 Encounter for screening mammogram for malignant neoplasm of breast (principal) | CPT/HCPCS: 77063; 77067 ==

== ENCOUNTER 2024-04-14 09:55 | Outpatient (REF) | payer OTHER, SELFPAY ==
--- NOTE | ~2024-04-14 | MM_ITS ---
EXAMINATION: MM DIAGNOSTIC DIGITAL BREAST TOMOSYNTHESIS, BILATERAL Limited left breast ultrasound. CLINICAL INFORMATION: History of breast cancer including mother and grandmother. Call back from screening for bilateral asymmetries. COMPARISON: Mammography: Comparison is made with relevant prior exams. TECHNIQUE: Digital breast mammography with tomosynthesis is performed in both the craniocaudal and mediolateral oblique views along with computer-aided detection (CAD). Limited left breast ultrasound. FINDINGS: The breasts are heterogeneously dense, which may obscure small masses (ACR BI-RADS breast composition Category c). Right: The previously seen asymmetry in the superior right breast posterior depth on MLO view does not persist on additional imaging projections and likely represented overlapping breast tissue. No suspicious calcifications masses or other abnormal findings. Left: Asymmetry lateral breast posterior depth on CC view does not definitively seen on additional imaging projections. Asymmetry in the lateral breast anterior to middle depth with questioned distortion partially effaces on additional imaging projections with questioned distortion. No suspicious calcifications or other abnormal findings. Targeted color Doppler ultrasound scanning from 12-4 o'clock demonstrates normal fibronodular breast tissue. Targeted color Doppler ultrasound scanning in the lower outer quadrant from 4-9 o'clock demonstrates normal fibroglandular breast tissue. Results are provided to the patient at time of visit by the technologist. MM/MM tomosynthesis added view BI IMPRESSION: Right: Negative. Left: 1. Asymmetry with questioned distortion without sonographic correlate. Recommend stereotactic core needle biopsy at this time for confirmation. Consider breast MRI with contrast as patient has a strong family history of breast cancer including the patient's mother. Breast MRI would need to be ordered by the patient's providing clinician. The findings and recommendations were discussed with the patient the procedure will be scheduled. 2. Asymmetry lateral left breast posterior depth on CC view without sonographic correlate. Recommend six-month follow-up mammography for further evaluation of stability. ASSESSMENT: BI-RADS BI-RADS 4 - Suspicious finding RECOMMENDATION: Biopsy recommended This patient's information was entered into a reminder system with a target due date for their next mammogram. Electronically signed by: Emma Gutiérrez DO 04/14/2024 11:25 AM [facility] [place]
== END 2024-04-14 09:56 | disposition home or self-care (01) ==
LOC: HO.MAMMO 09:55
PROVIDERS: PCP Internal Medicine; Visit Provider Internal Medicine
DX: N64.89 Other specified disorders of breast (principal)
CPT/HCPCS: 76642; 77062; 77066

== ENCOUNTER → 2024-04-14 10:00 | Outpatient (BNV) | payer OTHER, SELFPAY | PROVIDERS: PCP Internal Medicine; Visit Provider Internal Medicine | DX: R92.8 Other abnormal and inconclusive findings on diagnostic imaging of breast (principal) | CPT/HCPCS: 77062; 77066 ==

== ENCOUNTER 2024-04-17 03:56 | Emergency (ER) | payer OTHER, SELFPAY ==
--- NOTE | ~2024-04-17 | CT_ITS ---
EXAMINATION: CT ABDOMEN AND PELVIS WITHOUT CONTRAST CLINICAL INFORMATION: Lower abdominal pain. Leukocytosis. COMPARISON: None available. TECHNIQUE: Multidetector volumetric imaging was performed from the superior aspect of the liver through the pubic symphysis. Sagittal and coronal reformatted images were obtained on the technologist's workstation. This CT examination was performed using dose optimization techniques as appropriate, variously including the following: *Automated exposure control *Adjustment of mA and/or kV according to patient size (this includes techniques or standardized protocols for targeted exams where dose is matched to indication/reason for exam; i.e. extremities or head) *Use of iterative reconstruction technique DLP: 798 mGy centimeters. FINDINGS: Limited examination of the intra-abdominal organs and vascular structures due to lack of IV contrast. LUNG BASES: No acute airspace disease in the included lungs. LIVER, GALLBLADDER, AND BILIARY TREE: Liver measures 17 cm. There is a 5 cm low-density in the right hepatic lobe. No intrahepatic biliary ductal dilatation. No pericholecystic fluid collection or gallbladder wall thickening. The common bile duct measures 3 mm. PANCREAS: No peripancreatic fluid collections. No main pancreatic ductal dilatation. SPLEEN: 8 cm. ADRENAL GLANDS: There is a 9 mm low-density nodule measuring -3 Hounsfield units in the right adrenal gland. No nodular lesions in the left adrenal gland. KIDNEYS AND URETERS: No hydronephrosis. No nephrolithiasis. BLADDER: Fluid-filled nearly collapsed. GASTROINTESTINAL TRACT: Gas and fluid-filled prominent small bowel loops. No gross wall thickening in the terminal ileum. Appendix is normal. Numerous diverticula throughout the large intestine, mostly in the left hemicolon. There is a collapsed appearance of the large intestine. No pneumoperitoneum. No ascites. No pneumatosis intestinalis. ABDOMINAL WALL: No gross umbilical hernia. LYMPH NODES: Nonspecific mildly prominent mesenteric lymph nodes. VASCULAR: Mixed plaques, abdominal aorta wall without aneurysm. PELVIC VISCERA: There is an intrauterine T-shaped contraceptive device. OSSEOUS STRUCTURES: Multilevel thoracolumbar spondylosis resulting in grade 1 retrolisthesis L2-3 and L3-4 levels. Sclerosis and the sacroiliac joints. Bilateral facet joint hypertrophy at L4-5. Bilateral spondylolysis pars interarticularis L5-S1 without listhesis. CT/CT abdomen pelvis wo IV con IMPRESSION: Concerning enteritis in the correct clinical settings. An internal hernia resulting in partial/intermittent mid to distal small bowel obstruction cannot be excluded. Diverticular disease/diverticulosis. 5 cm hypodense lesion right hepatic lobe. Recommend indicated triple phase liver CT versus dynamic enhanced MRI liver mass protocol. 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 Spondylolysis pars interarticularis without listhesis, L5-S1. Consider congenital etiology. Fleischner guidelines were followed. Electronically signed by: Trevor Martinez MD 04/17/2024 08:24 AM LUPIS
[2024-04-17 04:04] VITALS: BP 111/62; PULSE 88; RESP 20; TEMP 36.5; O2SAT 100; BMI 33.1
--- NOTE | 2024-04-17 04:23 | ED_ITS ---
HPI - Abdominal Pain General Chief Complaint: Abdominal Pain Stated Complaint: dehydrated, n/v Time Seen by Provider: 04/17/24 04:21 Source: patient Mode of arrival: ambulatory Limitations: no limitations History of Present Illness ED Provider: HPI narrative: Patient was healthy complaining of nausea vomiting diarrhea started midnight had multiple episodes with diffuse abdominal cramps no fever no upper respiratory symptoms feels weak no other family member sick no recent travel no recent bad food intake Related Data Home Medications ?Medication ?Instructions ?Recorded ?Confirmed Aleve 440 mg PO Q6H PRN Pain 02/13/23 12/25/23 Claritin 10 mg PO ONCE 02/13/23 12/25/23 buspirone 7.5 mg tablet 7.5 mg PO BID 12/25/23 12/25/23 escitalopram oxalate 20 mg tablet 20 mg PO DAILY 12/25/23 12/25/23 hydroxyzine pamoate 50 mg capsule 50 mg PO BID PRN 12/25/23 12/25/23 naltrexone 50 mg tablet 50 mg PO QAM 12/25/23 12/25/23 trazodone 50 mg tablet 100 mg PO BID 12/25/23 12/25/23 Previous Rx's ?Medication ?Instructions ?Recorded amoxicillin 500 mg capsule 500 mg PO BID 5 days #10 caps 03/18/24 azithromycin 250 mg tablet 250 mg PO DAILY 5 days #6 tabs 03/25/24 diazepam 5 mg tablet (Valium) 10 mg (2 x 5 mg) PO BEDTIME PRN 04/14/24 anxiety 1 day #2 tabs Allergies Allergy/AdvReac Type Severity Reaction Status Date / Time strawberry [STRAWBERRY] Allergy Mild CANKER Verified 04/17/24 04:11 SORES oranges Allergy Intermediate canker Uncoded 12/25/23 16:23 sores tomatoes Allergy Intermediate canker Uncoded 12/25/23 16:23 sores Review of Systems Review of Systems Yes all other systems are reviewed and are negative PMFSH Past Medical History Medical History Subclavian artery stenosis, left Bronchitis Shoulder arthralgia KELSEA (generalized anxiety disorder) Upper back pain Neck pain Vertebral artery dissection Left arm weakness Elevated blood pressure reading without diagnosis of hypertension Insomnia KELSEA (generalized anxiety disorder) Left hemiparesis Conjunctivitis History of asthma History of depression Hx of anxiety disorder Surgical History Hx of ovarian cystectomy Family History Family History Mother Breast cancer, Onset Age: 46 Maternal Aunt Breast cancer Paternal Aunt Breast cancer Paternal Grandmother Breast cancer Sister Brain cancer Father Myocardial infarct Maternal Grandfather CVD (cardiovascular disease) Family/Other Substance abuse Mental problem Social History Social History Household Members: Children Housing: Apartment Do you presently have visiting nurse or other home services: No Alcohol intake: former Patient Tobacco Use Status: Current everyday Tobacco user Tobacco use type: Cigarette Cigarette Packs Per Day: 1 Cigarettes Per Day: 20 Smoked in Last 30 Days: No e-Cigarette/Vaping Use: Never Used Second Hand Smoke Exposure: No Use of substances other than those prescribed or required for medical reasons: No Advance Directives: No Advance Directives Information Provided: Yes Do you have a plan to hurt others: No Plan Patient : No service: No Current occupational status: employed 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 Oriented X3. No acute distress. Eyes: No pallor or icterus ENT: Pharynx normal. Oral Mucosa moist Neck: Normal inspection. Neck supple. CVS: Normal heart rate and rhythm. Pulses normal. Respiratory: No respiratory distress. Equal air entry bilateral, no wheezing/rales/rhonchi Abdomen: Soft and diffuse tenderness no rebound tenderness or guarding Bowel sounds are present, no mass palpable, no CVA tenderness Skin: Skin warm and dry. Normal skin color. Normal skin turgor. Extremities: No lower extremity edema. No calf tenderness Neuro: Oriented X 3. No motor deficit. No sensory deficit.No cerebellar signs , cranial nerves II-XII intact Medical Decision Making Medical Decision Making [facility] Narrative: Patient with acute gastroenteritis with leukocytosis no focal abdominal tenderness will do CT scan to rule out colitis. Patient is feeling much better after IV fluids signed out to Dr. Perez for further disposition Differential Diagnosis Differential Diagnoses: The differential diagnosis associated with the presentation includes Colitis/gastroenteritis/viral Lab Data [facility] Lab Attestation statement: I reviewed the patient's lab results. 04/17/24 06:12 04/17/24 06:12 Labs: Lab Results 04/17/24 Range/Units 06:12 WBC 19.9 H (4.8-10.8) X10*3/uL RBC 5.94 H D (4.20-5.50) X10*6/uL Hgb 17.4 H (12.0-16.0) g/dl Hct 50.7 H D (37.0-47.0) % MCV 85.4 (80.0-98.0) fL MCH 29.3 (27.0-33.0) pg MCHC 34.3 (31.0-35.0) g/dl RDW 13.3 (11.0-16.0) % Plt Count 332 (160-400) X10*3/uL MPV 9.4 (9.4-12.3) fL Immature Gran % (Auto) 1.0 H (0.0-0.4) % Neut % (Auto) 90.8 H (45-73) % Lymph % (Auto) 2.7 L (20-40) % [place] % (Auto) 4.7 (2-11) % Eos % (Auto) 0.5 (0-4) % Baso % (Auto) 0.3 (0-2) % Lymph # (Auto) 0.5 L (1.2-4.9) X10*3/uL [place] # (Auto) 0.9 (0.1-1.2) X10*3/uL Eos # (Auto) 0.1 (0.0-0.4) X10*3/uL Baso # (Auto) 0.1 (0.0-0.2) X10*3/uL Abs Immat Gran (auto) 0.19 H (0.00-0.03) X10*3/uL Absolute Neuts (auto) 18.1 H (2.0-8.3) x10*3/uL Absolute Nucleated RBC 0.000 (0.0-0.012) X10*3/uL Nucleated RBC % (auto) 0.0 (0.0-0.2) /100WBC Smear Tech's Comments VERIFIED Medications Administered Discontinued Medications Generic Name Dose Route Start Last Admin Trade Name Freq PRN Reason Stop Dose Admin Dicyclomine HCl 20 mg 04/17/24 06:02 04/17/24 06:15 Dicyclomine Hcl 10 Mg Capsule PO 04/17/24 06:03 20 mg ONCE ONE Administration Sodium Chloride 1,000 mls @ 999 mls/hr 04/17/24 06:02 04/17/24 06:15 Ns IV 04/17/24 07:02 999 mls/hr .Q1H1M ONE Administration Ketorolac Tromethamine 30 mg 04/17/24 06:02 04/17/24 06:15 Ketorolac Tromethamine 30 Mg/Ml Vial IVPUSH 04/17/24 06:03 30 mg ONCE ONE Administration Loperamide HCl 4 mg 04/17/24 04:23 04/17/24 04:53 Loperamide Hcl 2 Mg Capsule PO 04/17/24 04:24 4 mg ONCE ONE Administration Ondansetron HCl 4 mg 04/17/24 04:23 04/17/24 04:41 Ondansetron Odt 4 Mg Tab.Rapdis TRANSLINGU 04/17/24 04:24 4 mg ONCE ONE Administration Discharge Plan Discharge Clinical Impression: Gastroenteritis Patient Disposition: Still a Patient Prescriptions: No Action amoxicillin 500 mg capsule 500 mg PO BID 5 Days Qty: 10 0RF azithromycin 250 mg tablet 250 mg PO DAILY 5 Days Qty: 6 0RF Rx Instructions: Take 2 tabs the first day, then 1 tab the next 4 days diazepam [Valium] 5 mg tablet 10 mg PO BEDTIME PRN (Reason: anxiety) 1 Days Qty: 2 0RF Rx Instructions: Take 1 to 2 tabs as needed for anxiety 45 minutes prior to exam Aleve 220 mg tablet 440 mg PO Q6H PRN (Reason: Pain) Claritin 10 mg tablet 10 mg PO ONCE hydroxyzine pamoate 50 mg capsule 50 mg PO BID PRN buspirone 7.5 mg tablet 7.5 mg PO BID naltrexone 50 mg tablet 50 mg PO QAM escitalopram oxalate 20 mg tablet 20 mg PO DAILY trazodone 50 mg tablet 100 mg PO BID Print Language: Sinhala
[2024-04-17] MEDS: Ondansetron ODT 4 MG TAB.RAPDIS TRANSLINGU (04:41)
--- NOTE | 2024-04-17 04:49 | MHC.EDTECH ---
said to hold on labs for now ,RN Page aware .
[2024-04-17] MEDS: Loperamide HCl 2 MG CAPSULE 4 MG PO (04:53)
[2024-04-17] MEDS: 0.9 % Sodium Chloride 1,000 ML 999 ML IV (06:15)
[2024-04-17] MEDS: Ketorolac Tromethamine 30 MG/ML VIAL IVPUSH (06:15)
[2024-04-17] MEDS: Dicyclomine HCl 10 MG CAPSULE 20 MG PO (06:15)
--- NOTE | 2024-04-17 06:18 | PC.NURSE ---
previously ordered labs placed on hold per dr reyes. @ this time labs drawn iv placed and pt medicated according to dr reyes orders pt agreeable to plan 20g IV placed in L ac pt tolerated well
[2024-04-17 06:20] LABS: Basophils Absolute Auto 0.1 X10*3/uL (0.0-0.2); Basophils Percent Auto 0.3 % (0-2); Eosinophils Absolute Auto 0.1 X10*3/uL (0.0-0.4); Eosinophils Percent Auto 0.5 % (0-4); Hematocrit 50.7 % (37.0-47.0); Hemoglobin 17.4 g/dl (12.0-16.0); Imm Gran Abs Auto 0.19 X10*3/uL (0.00-0.03); Lymphocytes Absolute Auto 0.5 X10*3/uL (1.2-4.9); Lymphocytes Percent Auto 2.7 % (20-40); MANUAL DIFF FLAG SCAN; Mean Corpuscular HGB Conc 34.3 g/dl (31.0-35.0); Mean Corpuscular Hemoglobin 29.3 pg (27.0-33.0); Mean Corpuscular Volume 85.4 fL (80.0-98.0); Mean Platelet Volume 9.4 fL (9.4-12.3); Monocytes Absolute Auto 0.9 X10*3/uL (0.1-1.2); Monocytes Percent Auto 4.7 % (2-11); Neutrophils Absolute Auto 18.1 x10*3/uL (2.0-8.3); Neutrophils Percent Auto 90.8 % (45-73); Platelet Count 332 X10*3/uL (160-400); Red Blood Count 5.94 X10*6/uL (4.20-5.50); Red Cell Distribution Width 13.3 % (11.0-16.0); SCAN SMEAR FLAG 1; White Blood Count 19.9 X10*3/uL (4.8-10.8)
[2024-04-17 06:23] VITALS: BP 113/70; PULSE 99; RESP 16; TEMP 36.4; O2SAT 97
[2024-04-17 06:55] LABS: SLIDE REVIEW VERIFIED
[2024-04-17 09:06] LABS: Alanine Aminotransferase 28 U/L (0-31); Albumin Level 4.5 g/dL (3.5-5.0); Alkaline Phosphatase 70 U/L (39-117); Anion Gap 22 (12-20); Aspartate Amino Transferase 32 U/L (5-31); Bilirubin Total 0.6 mg/dL (0.0-1.0); Blood Urea Nitrogen 18 mg/dL (9-16); Calcium 10.5 mg/dL (8.4-10.2); Carbon Dioxide 17 mmol/L (22-29); Chloride 110 mmol/L (96-108); Creatinine Clr Calc Pharmacy 75.7; Estimated Glomerular Filt Rate 57; Glucose Random 172 mg/dL (60-115); Lipase 36 U/L (8-78); Potassium 4.4 mmol/L (3.3-5.1); Sodium 142 mmol/L (135-145)
[2024-04-17] MEDS: Lactated Ringers 1,000 ML 999 ML IV (09:11)
--- NOTE | 2024-04-17 10:14 | PM.CNGS ---
History of Present Illness Consult details Consult date: 04/17/24 Reason for consult: abdominal pain Requesting physician: Diana Hilario Narrative: 48-year-old female patient presenting with complaints of abdominal pain with associated nausea, vomiting, and diarrhea. Patient had multiple episodes of the nausea and vomiting which would come in waves over the previous 24 hours and appeared to be worsening in severity. She felt she was becoming dehydrated therefore presented to the emergency department for further evaluation. She denies any sick contacts or eating any unusual foods. She denies a previous history of similar problems. Workup in the emergency department revealed an elevated WBC of 19.9 with a hemoglobin of 17.4 and hematocrit of 50.[address] abdomen and pelvis revealed evidence of enteritis especially in the right colon. An internal hernia resulting in a partial or intermittent mid small-bowel obstruction could not be excluded. Surgical consultation was requested for further evaluation. Patient currently feels much improved and denies any abdominal pain. She was able to tolerate p.o. without further nausea or vomiting. Review of Systems Review of Systems: Yes all other systems are reviewed and are negative PMFSH Past Medical History Medical History Subclavian artery stenosis, left Bronchitis Shoulder arthralgia KELSEA (generalized anxiety disorder) Upper back pain Neck pain Vertebral artery dissection Left arm weakness Elevated blood pressure reading without diagnosis of hypertension Insomnia KELSEA (generalized anxiety disorder) Left hemiparesis Conjunctivitis History of asthma History of depression Hx of anxiety disorder Family History Family History Mother Breast cancer, Onset Age: 46 Maternal Aunt Breast cancer Paternal Aunt Breast cancer Paternal Grandmother Breast cancer Sister Brain cancer Father Myocardial infarct Maternal Grandfather CVD (cardiovascular disease) Family/Other Substance abuse Mental problem Surgical History Surgical History Hx of ovarian cystectomy Social History Social History Household Members: Children Housing: Apartment Do you presently have visiting nurse or other home services: No Alcohol intake: former Patient Tobacco Use Status: Current everyday Tobacco user Tobacco use type: Cigarette Cigarette Packs Per Day: 1 Cigarettes Per Day: 20 Smoked in Last 30 Days: No e-Cigarette/Vaping Use: Never Used Second Hand Smoke Exposure: No Use of substances other than those prescribed or required for medical reasons: No Advance Directives: No Advance Directives Information Provided: Yes Do you have a plan to hurt others: No Plan Patient : No service: No Current occupational status: employed 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 [employer] Current occupational exposures/hazards: No Cognitive needs: No Hearing needs: No Vision needs: No Meds Allergies Allergy/AdvReac Type Severity Reaction Status Date / Time strawberry [STRAWBERRY] Allergy Mild CANKER Verified 04/17/24 04:11 SORES oranges Allergy Intermediate canker Uncoded 12/25/23 16:23 sores tomatoes Allergy Intermediate canker Uncoded 12/25/23 16:23 sores Home Medications ?Medication ?Instructions ?Recorded ?Confirmed ?Last Taken ?Type Aleve 440 mg PO Q6H PRN Pain 02/13/23 12/25/23 02/13/23 08:00 History Claritin 10 mg PO ONCE 02/13/23 12/25/23 02/13/23 20:00 History buspirone 7.5 mg tablet 7.5 mg PO BID 12/25/23 12/25/23 Unknown History escitalopram oxalate 20 mg tablet 20 mg PO DAILY 12/25/23 12/25/23 Unknown History hydroxyzine pamoate 50 mg capsule 50 mg PO BID PRN 12/25/23 12/25/23 Unknown History naltrexone 50 mg tablet 50 mg PO QAM 12/25/23 12/25/23 Unknown History trazodone 50 mg tablet 100 mg PO BID 12/25/23 12/25/23 Unknown History Physical Exam Vital Signs: Vital Signs: Last Vital Signs Temp 97.5 F 04/17/24 06:23 Pulse 99 04/17/24 06:23 Resp 16 04/17/24 06:23 BP 113/70 04/17/24 06:23 Pulse Ox 97 04/17/24 06:23 O2 Del Method Room Air 04/17/24 06:23 BMI result Body Mass Index 33.1 Const: General: no acute distress Nutritional Appearance: well nourished Orientation/consciousness: patient oriented x3 Limitations: no limitations HEENT: Head: Yes normocephalic and Yes atraumatic Resp: Effort & Inspection: normal respiratory effort, no audible wheezes, no cough and no respiratory distress GI: Inspection: Yes normal to inspection and No distended Palpation (GI): Soft to palpation, nontender, no guarding and not rigid Percussion: Yes normal to percussion Auscultation: normal bowel sounds Neuro: General: patient oriented x3 Extrem: General: Yes no clubbing, cyanosis or edema Results Labs 04/17/24 06:12 04/17/24 06:46 Labs: Abnormal lab results 04/17/24 04/17/24 Range/Units 06:12 06:46 WBC 19.9 H (4.8-10.8) X10*3/uL RBC 5.94 H D (4.20-5.50) X10*6/uL Hgb 17.4 H (12.0-16.0) g/dl Hct 50.7 H D (37.0-47.0) % Immature Gran % (Auto) 1.0 H (0.0-0.4) % Neut % (Auto) 90.8 H (45-73) % Lymph % (Auto) 2.7 L (20-40) % Lymph # (Auto) 0.5 L (1.2-4.9) X10*3/uL Abs Immat Gran (auto) 0.19 H (0.00-0.03) X10*3/uL Absolute Neuts (auto) 18.1 H (2.0-8.3) x10*3/uL Chloride 110 H (96-108) mmol/L Carbon Dioxide 17 L (22-29) mmol/L Anion Gap 22 H (12-20) BUN 18 H (9-16) mg/dL Random Glucose 172 H (60-115) mg/dL Calcium 10.5 H D (8.4-10.2) mg/dL AST 32 H (5-31) U/L Short CBC 04/17/24 Range/Units 06:12 WBC 19.9 H (4.8-10.8) X10*3/uL Hgb 17.4 H (12.0-16.0) g/dl Hct 50.7 H D (37.0-47.0) % Plt Count 332 (160-400) X10*3/uL BMP 04/17/24 06:46 Sodium 142 Potassium 4.4 Chloride 110 H Carbon Dioxide 17 L BUN 18 H Creatinine 1.02 Calcium 10.5 H D Liver Function 04/17/24 Range/Units 06:46 Total Bilirubin 0.6 (0.0-1.0) mg/dL AST 32 H (5-31) U/L ALT 28 (0-31) U/L Alkaline Phosphatase 70 (39-117) U/L Albumin 4.5 (3.5-5.0) g/dL All other labs normal. Assessment and Plan (1) Gastroenteritis: Status: Acute Plan 48-year-old female patient presenting with complaints of nausea, vomiting, and profuse diarrhea. Examination reveals a soft abdomen without evidence of tympany or marked distention. She does have some mild tenderness in the lower abdomen without peritoneal signs. CT abdomen and pelvis is more suggestive of enteritis then obstruction. No clinical evidence of a small-bowel obstruction. No surgical intervention recommended. Procedures Date of Service Date of Service: 04/17/24
== END 2024-04-17 10:08 | disposition home or self-care (01) ==
PROVIDERS: Emergency Provider Internal Medicine; PCP Internal Medicine
DX: K52.9 Noninfective gastroenteritis and colitis, unspecified (principal); E86.0 Dehydration; R11.2 Nausea with vomiting, unspecified; R10.2 Pelvic and perineal pain; F17.210 Nicotine dependence, cigarettes, uncomplicated; Z79.899 Other long term (current) drug therapy
CPT/HCPCS: 36415; 74176; 80053; 83690; 85025; 96361; 96374; 99285; J1885; J7120

== ENCOUNTER → 2024-04-17 04:57 | Outpatient (BNV) | payer OTHER, SELFPAY | PROVIDERS: Emergency Provider Internal Medicine; PCP Internal Medicine; Visit Provider Surgery | DX: K52.9 Noninfective gastroenteritis and colitis, unspecified (principal) | CPT/HCPCS: 99283 ==

== ENCOUNTER → 2024-04-17 06:49 | Outpatient (BNV) | payer OTHER, SELFPAY | PROVIDERS: Emergency Provider Internal Medicine; PCP Internal Medicine; Visit Provider Radiology Diagnostic Radiology | DX: K76.89 Other specified diseases of liver (principal); M43.07 Spondylolysis, lumbosacral region; K57.90 Diverticulosis of intestine, part unspecified, without perforation or abscess without bleeding | CPT/HCPCS: 74176 ==

== ENCOUNTER 2024-04-28 10:16 | Outpatient (AMB) | payer OTHER, SELFPAY ==
--- NOTE | 2024-04-28 10:18 | A.OFFVIS_ITS ---
Vital Signs 04/28/24 10:28 Height 5 ft 6 in Weight 205 lb 4 oz BMI 33.1 BP 173/86 H Blood Pressure Location Lt brachial Position Sitting Pulse 101 H Intake Visit Reasons: Left Breast Stereo Biopsy Consult for Assymetry Intake Note: Patient is seen in office for stereo biopsy CONSULT for left breast upper outer quadrant asymmetry. Pt c/o: does not feel any lump, bump, redness, discharge, had mastitis twice in the past when breast feeding, aprox 24 yrs ago, has a fm hx of breast cancer, first child at 16 yrs old mm:04/14/24 Bx sched:05/13/24 Community Health Nursing Director Required: No Supervisor Plasma: Supervisor Plasma Present Accompanied by: Self / Same As Patient Allergies strawberry [STRAWBERRY] Allergy (Mild, Verified 04/28/24 10:24) CANKER SORES oranges Allergy (Intermediate, Uncoded 04/28/24 10:24) canker sores tomatoes Allergy (Intermediate, Uncoded 04/28/24 10:24) canker sores Medication List - Last Reconciled 04/28/24 by Herbie Canseco MD [Aleve 440 mg PO Q6H PRN] buspirone 7.5 mg PO BID [Claritin 10 mg PO ONCE] diazepam (Valium) 10 mg (2 x 5 mg) PO BEDTIME PRN 1 day escitalopram oxalate 20 mg PO DAILY hydroxyzine pamoate 50 mg PO BID PRN naltrexone 50 mg PO QAM ondansetron 4 mg PO Q8H PRN trazodone 100 mg PO BID HPI Comments Details: 48-year-old female patient presenting for evaluation of a recent mammogram which revealed a suspicious density in the left breast. She underwent initial screening mammogram on 02/11/2024 with follow-up images and ultrasound performed on 04/14/2024. This revealed an area of asymmetry without sonographic correlate anterior to middle depth felt to be suspicious for malignancy. Stereotactic guided core biopsy was recommended. In addition a 2nd lesion the posterior depth was felt to be low suspicion and six-month follow-up mammogram recommended this lesion. Patient reports a strong family history of breast cancer including her mother, maternal aunt, paternal grandmother, and paternal aunt. Her menarche was the age of 11 and she is . She has an IUD in place and has not had a period in approximately 20 years. She denies any symptoms or palpable lumps in the breast. She denies a previous history of breast surgery. Her mother underwent genetic testing many years ago and was determined to be BRCA negative. She is scheduled for a stereotactic guided core biopsy at the [facility] on 05/13/2024. [facility] [place] Medical History Subclavian artery stenosis, left Bronchitis Shoulder arthralgia KELSEA (generalized anxiety disorder) Upper back pain Neck pain Vertebral artery dissection Left arm weakness Elevated blood pressure reading without diagnosis of hypertension Insomnia KELSEA (generalized anxiety disorder) Left hemiparesis Conjunctivitis History of asthma History of depression Hx of anxiety disorder Surgical History Hx of ovarian cystectomy Family History Mother Breast cancer, Onset Age: 46 Maternal Aunt Breast cancer Paternal Aunt Breast cancer Paternal Grandmother Breast cancer Sister Brain cancer Father Myocardial infarct Maternal Grandfather CVD (cardiovascular disease) Family/Other Substance abuse Mental problem Social History Household Members: Children Housing: Apartment Do you presently have visiting nurse or other home services: No Alcohol intake: former Patient Tobacco Use Status: Current everyday Tobacco user Tobacco use type: Cigarette Cigarette Packs Per Day: 1 Cigarettes Per Day: 20 e-Cigarette/Vaping Use: Never Used Second Hand Smoke Exposure: No service: No Current occupational status: employed 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 [employer] Current occupational exposures/hazards: No Cognitive needs: No Hearing needs: No Vision needs: No Female Reproductive History Menstrual Age of Menarche: 11 Total pregnancies: 2 Number of Living Children: 2 Review of Systems Const All systems reviewed & are unremarkable except as noted in HPI and below Physical Exam Vital Signs: Last Vital Signs Pulse 101 H 04/28/24 10:28 BP 173/86 H 04/28/24 10:28 BMI result Body Mass Index 33.1 Const General: cooperative and no acute distress Nutritional Appearance: well nourished Orientation/consciousness: patient oriented x3 Limitations: no limitations HEENT Head: Yes normocephalic and Yes atraumatic Ears: hearing grossly normal bilaterally Chest Other: Left breast: No skin change, no nipple retraction, no nipple discharge, no palpable mass, no enlarged lymph nodes. Right breast: No skin change, no nipple retraction, no nipple discharge, no palpable mass, no enlarged lymph nodes Resp Effort & Inspection: normal respiratory effort, no audible wheezes, no cough and no respiratory distress Cardio Jugular venous distension: no JVD GI Inspection: Yes normal to inspection Skin Other: Warm, dry, no rash Neuro General: patient oriented x3 Extrem General: Yes no clubbing, cyanosis or edema Assessment & Plan Assessment & Plan (1) Abnormal mammogram of left breast: Code(s): R92.8 - Other abnormal and inconclusive findings on diagnostic imaging of breast Category: Medical (2) At high risk for breast cancer: Code(s): Z91.89 - Other specified personal risk factors, not elsewhere classified Category: Medical (3) Family history of breast cancer: Code(s): Z80.3 - Family history of malignant neoplasm of breast Category: Medical Plan 48-year-old female patient presenting with a recent mammogram which revealed an area of architectural distortion in the left breast felt be suspicious for malignancy. She is scheduled for a stereotactic guided core biopsy on 05/13/2024. There was a 2nd lesion more posterior in the left breast which was consider low suspicion and six-month follow-up mammogram is recommended. The patient has a strong family history of breast cancer therefore would be a candidate for both genetic testing and MRI of the breast. Examination today revealed no suspicious findings in either breast. I recommended she return approximately week following her stereotactic core biopsy to reveal the pathology results and discuss treatment options. She expressed understanding and agrees with the plan. Orders: Orders MR breast BI wo/w con Today R92.8 - Other abnormal and inconclusive findings on diagnostic imaging of breast, Z80.3 - Family history of malignant neoplasm of breast, Z91.89 - Other specified personal risk factors, not elsewhere classified MM diagnostic mammo unilat LT 10/26/24 R92.8 - Other abnormal and inconclusive findings on diagnostic imaging of breast, Z80.3 - Family history of malignant neoplasm of breast, Z91.89 - Other specified personal risk factors, not elsewhere classified MM stereotactic biopsy LT Today R92.8 - Other abnormal and inconclusive findings on diagnostic imaging of breast, Z80.3 - Family history of malignant neoplasm of breast, Z91.89 - Other specified personal risk factors, not elsewhere classified Coding Level of Care Code New Pt Level 4 (13122) Diagnoses Abnormal mammogram of left breast R92.8 At high risk for breast cancer Z91.89 Family history of breast cancer Z80.3
[2024-04-28 10:28] VITALS: BP 173/86; PULSE 101; BMI 33.1
== END 2024-04-28 10:53 | disposition home or self-care (01) ==
PROVIDERS: PCP Internal Medicine; Visit Provider Surgery
DX: R92.8 Other abnormal and inconclusive findings on diagnostic imaging of breast (principal); Z91.89 Other specified personal risk factors, not elsewhere classified; Z80.3 Family history of malignant neoplasm of breast
CPT/HCPCS: 99214

== ENCOUNTER 2024-05-13 08:00 | Outpatient (REF) | payer OTHER, SELFPAY ==
--- NOTE | ~2024-05-13 | MM_ITS ---
EXAMINATION: STEREOTACTICALLY-GUIDED LEFT BREAST BIOPSY canceled CLINICAL INFORMATION: Left breast asymmetry without sonographic correlate biopsy recommended. COMPARISON: Comparison is made with available prior examinations on PACS. INFORMED CONSENT: After the details of the procedure, as well as the risks (including, but not limited to, bleeding, hematoma formation, and infection), benefits and alternatives (including doing nothing, short-interval follow up, and surgery) to the procedure were explained to the patient in detail and all of her questions were answered, informed written consent was obtained. TECHNIQUE/FINDINGS: A timeout was performed. The lesion intended for biopsy was not identified on the stereotactic imaging and therefore biopsy was canceled and 6 month follow-up was recommended for further evaluation. Only normal fibronodular breast tissue was seen.
== END 2024-05-13 08:01 | disposition home or self-care (01) ==
LOC: HO.MAMMO 08:00
PROVIDERS: PCP Internal Medicine; Visit Provider Surgery
DX: R92.8 Other abnormal and inconclusive findings on diagnostic imaging of breast (principal); Z91.89 Other specified personal risk factors, not elsewhere classified; Z80.3 Family history of malignant neoplasm of breast; Z53.8 Procedure and treatment not carried out for other reasons
CPT/HCPCS: 19081

== ENCOUNTER → 2024-05-13 08:00 | Outpatient (BNV) | payer OTHER, SELFPAY | PROVIDERS: PCP Internal Medicine; Visit Provider Internal Medicine | DX: R92.8 Other abnormal and inconclusive findings on diagnostic imaging of breast (principal) | CPT/HCPCS: 19081 ==

== ENCOUNTER → 2024-05-26 08:20 | Outpatient (BNV) | payer OTHER, SELFPAY | PROVIDERS: PCP Internal Medicine; Visit Provider Internal Medicine | DX: N63.21 Unspecified lump in the left breast, upper outer quadrant (principal) | CPT/HCPCS: 77049 ==

== ENCOUNTER 2024-05-26 08:23 | Outpatient (REF) | payer OTHER, SELFPAY ==
[2024-05-26] MEDS: gadobutroL 10 ML VIAL IVPUSH (09:10)
== END 2024-05-26 08:24 | disposition home or self-care (01) ==
LOC: HO.MRI 08:23
PROVIDERS: PCP Internal Medicine; Visit Provider Surgery
DX: R92.8 Other abnormal and inconclusive findings on diagnostic imaging of breast (principal); Z91.89 Other specified personal risk factors, not elsewhere classified; Z80.3 Family history of malignant neoplasm of breast
CPT/HCPCS: 77049; A9585

== ENCOUNTER 2024-06-14 15:17 | Outpatient (REF) | payer OTHER, SELFPAY ==
--- NOTE | ~2024-06-14 | MR_ITS ---
CLINICAL HISTORY: R16.0 - Hepatomegaly, not elsewhere classified MR abdomen with and without gadolinium Comparison: CT/SR - CT ABDOMEN PELVIS WO IV CON - 04/17/24 07:42 EST Findings: Lung bases are clear. Within the medial segment left hepatic lobe, there is a well-circumscribed 55 mm high T2 intensity focus which demonstrates peripheral nodular enhancement with centripetal enhancement on successive phases of intravenous contrast administration. Liver is otherwise within normal limits. Biliary tree, gallbladder, and pancreas are within normal limits. Spleen is within normal limits. Previously described right adrenal nodule is not seen. Kidneys are within normal limits. Visualized bowel loops and vasculature are normal in caliber. No adenopathy. Visualized osseous structures are within normal limits. IMPRESSION: 1. Left hepatic lobe hemangioma. 2. Nonvisualization of right adrenal nodule. This document has been electronically signed by: Kayli Mills MD on 06/15/2024 15:00:30
[2024-06-14] MEDS: gadobutroL 10 ML VIAL IVPUSH (16:07)
== END 2024-06-14 15:18 | disposition home or self-care (01) ==
LOC: HO.MRI 15:17
PROVIDERS: Visit Provider Internal Medicine
DX: R16.0 Hepatomegaly, not elsewhere classified (principal)
CPT/HCPCS: 74183; A9585

== ENCOUNTER → 2024-06-14 15:25 | Outpatient (BNV) | payer OTHER, SELFPAY | PROVIDERS: Visit Provider Radiology Diagnostic Radiology | DX: R16.0 Hepatomegaly, not elsewhere classified (principal) | CPT/HCPCS: 74183 ==

== ENCOUNTER 2024-06-30 09:56 | Day surgery (SDC) | payer OTHER, SELFPAY ==
[2024-06-26 15:12] VITALS: BMI 31.8
[2024-06-30 10:25] LABS: UPreg QC Valid YES; Urine Pregnancy NEGATIVE (NEGATIVE)
--- NOTE | 2024-06-30 10:28 | P.HPSUR_ITS ---
Pre-Procedural Eval Section A - 24 Hr Update-Section A only Date of Service: 06/30/24 Section B - Complete if H&P > 30 days Chief Complaint: screening Relevant Family History (Specify if Yes): No Relevant Social History: Tobacco Use Present Medications: see Short Stay Collaborative assessment Medical History: Significant History (Subclavian artery stenosis, left Bronchitis Shoulder arthralgia KELSEA (generalized anxiety disorder) Upper back pain Neck pain Vertebral artery dissection Left arm weakness Elevated blood pressure reading without diagnosis of hypertension Insomnia KELSEA (generalized anxiety disorder) Left hemiparesis Co) History of Previous Operations: Relevant previous surgery/procedure and date(s) ( Hx of ovarian cystectomy) Allergies: Allergies Allergy/AdvReac Type Severity Reaction Status Date / Time orange Allergy Mild canker Verified 06/30/24 10:18 sores strawberry [STRAWBERRY] Allergy Mild canker Verified 06/30/24 10:18 sores tomato Allergy Mild canker Verified 06/30/24 10:18 sores Review of Systems Sugical H&P ROS: Negative: Constitution, Cardiovascular, Respiratory, Neurological, Psychiatric, Hem-Onc, Allergic/Immunologic, Gastrointestinal, Genitourinary, Musculoskeletal, Integumentary, Endocrine and Eyes/E ars/Nose/Throat Exam Surgical H&P Exam: Normal: HEENT, Normal: Heart, Normal: Lungs, Normal: Extremities, Normal: Abdomen, Normal: Skin and Normal: Neurological Plan Diagnosis/Plan: Unchanged I have reviewed the history and physical and performed a pertinent physical examination on my patient. No changes have occurred unless specified. colonsocopy for cancer screening. No major symptoms. Time Spent With Patient Time: Total time managing care of this patient today ____ minutes.
[2024-06-30 10:35] VITALS: BP 116/78; PULSE 86; RESP 16; TEMP 36.8; O2SAT 95; BMI 30.5
[2024-06-30] MEDS: Lactated Ringers 1,000 ML 100 ML IVCONT (10:47)
--- NOTE | 2024-06-30 11:43 | P.OPN-COLO_ITS ---
Colonoscopy Operative Note Operative Note Date of Service: 06/30/24 Narrative: Operative Information Procedure Description: Colonoscopy Indication: screening Anesthesia: MAC COLONOSCOPY Instrument: Olympus variable stiffness pediatric scope 190L Colonoscopy Monitoring: Vital signs and clinical assessment, continuous EKG monitoring, Pulse oximetry, Carbon Dioxide monitoring and blood pressure monitoring were done throughout the procedure. Colon withdrawal time was 11 minutes. Procedure: The patient was placed in the left lateral decubitis position and pre-procedure medications were administered. After a digital rectal examination of the ano-rectum, the video colonoscope was inserted into the rectum and advanced through the colon to the cecum/TI. The colonoscope was slowly withdrawn in a retrograde panoramic fashion and the colon mucosa was carefully examined including a retroflexed view of the rectum. Findings and interventions are described below. Procedure Difficulty: easy Findings: Terminal Ileum-normal Cecum:normal right sided retroflexion: normal Ascending Colon: normal Transverse Colon -normal Descending Colon:normal Sigmoid Colon: moderate diverticulosis, 6-8 mm sessile polyp removed with cold snare Rectum: Retroflexion with small internal hemorrhoids seen, grade I, 3-4 mm sessile polyp removed with cold forceps Anorectum - normal Intervention: Colon preparation: Alverda Bowel Preparation Scale Right colon; 2 Transverse colon: 2 Left colon; 2 (0 = Unprepared colon segment with mucosa not seen due to solid stool that cannot be cleared. 1 = Portion of mucosa of the colon segment seen, but other areas of the colon segment not well seen due to staining, residual stool and/or opaque liquid. 2 = Minor amount of residual staining, small fragments of stool and/or opaque liquid, but mucosa of colon segment seen well. 3 = Entire mucosa of colon segment seen well with no residual staining, small fragments of stool or opaque liquid) Impression and Post Procedure Diagnosis: diverticulosis colon polyps x 2 internal hemorrhoids Plan: High fiber diet leaflet Avoid straining at stool, epsom salts and sitz bath, anusol supps or cream Repeat Colonoscopy in 5-6 years if adenomatous polyps, 10 yrs if hyperplastic or earlier if clinically indicated Above findings were reviewed with the patient and relevant handouts were provided if indicated.
[2024-06-30 11:48] VITALS: BP 120/80; PULSE 73; RESP 18; TEMP 37.1; O2SAT 95
[2024-06-30 12:03] VITALS: BP 113/77; PULSE 73; RESP 16; TEMP 37.1; O2SAT 96
== END 2024-06-30 12:56 | disposition home or self-care (01) ==
PROVIDERS: Internal Medicine; PCP Internal Medicine; Visit Provider Internal Medicine Gastroenterology
PROC: 0DJD8ZZ Inspection of Lower Intestinal Tract, Via Natural or Artificial Opening Endoscopic (ICD-10-PCS; CPT 45378; principal; 2024-06-30 13:30)
DX: Z12.11 Encounter for screening for malignant neoplasm of colon (principal); K63.5 Polyp of colon; K62.1 Rectal polyp; K57.30 Diverticulosis of large intestine without perforation or abscess without bleeding; K64.0 First degree hemorrhoids; R03.0 Elevated blood-pressure reading, without diagnosis of hypertension; M54.9 Dorsalgia, unspecified; J40 Bronchitis, not specified as acute or chronic; F41.9 Anxiety disorder, unspecified; E66.811 Obesity, class 1; Z68.31 Body mass index [BMI] 31.0-31.9, adult; Z79.899 Other long term (current) drug therapy; F17.210 Nicotine dependence, cigarettes, uncomplicated
CPT/HCPCS: 45385; 45380; 81025; 88305; J2003; J2704

== ENCOUNTER → 2024-06-30 09:56 | Outpatient (BNV) | payer OTHER, SELFPAY | PROVIDERS: PCP Internal Medicine; Visit Provider Internal Medicine Gastroenterology | DX: Z12.11 Encounter for screening for malignant neoplasm of colon (principal); K63.5 Polyp of colon; K62.1 Rectal polyp; K64.0 First degree hemorrhoids; K57.30 Diverticulosis of large intestine without perforation or abscess without bleeding | CPT/HCPCS: 45380; 45385 ==

== ENCOUNTER 2024-10-13 11:20 | Outpatient (REF) | payer OTHER, SELFPAY ==
--- NOTE | ~2024-10-13 | MM_ITS ---
EXAMINATION: MM DIAGNOSTIC DIGITAL BREAST TOMOSYNTHESIS, LEFT CLINICAL INFORMATION: Patient was scheduled for stereotactic needle core biopsy on May 13, 2024 for a left asymmetry with questioned distortion without sonographic correlate seen in the lateral breast anterior to middle depth on the CC view. The biopsy was canceled because could not be definitely seen on the images that day. A 6-month follow-up mammogram was recommended. Note that patient is status post Breast MRI on May 26, 2024 that recommended a 6-month follow-up MRI. COMPARISON: images from attempted stereotactic core biopsy on May 13, 2024, left diagnostic mammogram on April 14, 2024 and bilateral screening mammogram on February 11, 2024. TECHNIQUE: Digital breast tomosynthesis is performed in craniocaudal view along with computer-aided detection (CAD). Synthesized 2D images are generated from the tomosynthesis. Spot compression tomosynthesis images were also obtained. FINDINGS: BREAST COMPOSITION: There are scattered areas of fibroglandular density (ACR BI-RADS breast composition Category b). LEFT BREAST: Asymmetry in the lateral aspect of the breast, middle depth on the CC view, associated with questioned distortion has similar appearance to previous mammograms from January 2024 and March 2024. MM/MM diagnostic mammo unilat LT IMPRESSION: LEFT BREAST: Asymmetry in the lateral breast middle depth on the CC view with the questioned distortion, unchanged from January 2024/March 2024. Probably benign. Short-term follow-up is recommended as bilateral diagnostic mammogram expected in January 2025. ASSESSMENT: BI-RADS 3 - Probably benign finding(s) - 6 month follow-up suggested RECOMMENDATION: 6 Month F/U Results were provided to the patient at time of visit by the technologist. This patient's information was entered into a reminder system with a target due date for their next mammogram. Electronically signed by: Julio Quach MD 10/13/2024 12:28 PM EDT
== END 2024-10-13 11:21 | disposition home or self-care (01) ==
LOC: HO.MAMMO 11:20
PROVIDERS: PCP Internal Medicine; Visit Provider Internal Medicine
DX: R92.8 Other abnormal and inconclusive findings on diagnostic imaging of breast (principal); Z91.89 Other specified personal risk factors, not elsewhere classified; Z80.3 Family history of malignant neoplasm of breast
CPT/HCPCS: 77062; 77065

== ENCOUNTER → 2024-10-13 11:30 | Outpatient (BNV) | payer OTHER, SELFPAY | PROVIDERS: PCP Internal Medicine; Visit Provider Radiology Body Imaging | DX: R92.8 Other abnormal and inconclusive findings on diagnostic imaging of breast (principal) | CPT/HCPCS: 77061; 77065 ==

== ENCOUNTER 2024-12-29 07:23 | Outpatient (AMB) | payer OTHER, SELFPAY ==
--- NOTE | 2024-12-29 07:34 | A.OFFPC_ITS ---
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 Accompanied by: Self / Same As Patient Allergies orange Allergy (Mild, Verified 12/29/24 07:46) canker sores strawberry (STRAWBERRY) Allergy (Mild, Verified 12/29/24 07:46) canker sores tomato Allergy (Mild, Verified 12/29/24 07:46) canker sores trazodone Adverse Reaction (Intermediate, Verified 12/29/24 07:52) nightmares Medication List - Last Reconciled 12/29/24 by Yanelis Mondragon MD [Aleve 440 mg PO Q6H PRN] buspirone 7.5 mg PO BID [Claritin 10 mg PO ONCE] diazepam (Valium) 10 mg (2 x 5 mg) PO BEDTIME PRN 1 day escitalopram oxalate 20 mg PO DAILY hydroxyzine pamoate 50 mg PO BID PRN naltrexone 50 mg PO QAM ondansetron 4 mg PO Q8H PRN trazodone 100 mg PO BID Tobacco use date assessed: 12/29/24 Dental Screening Dental Screen Date: 12/29/24 Did you have a dental visit in the last 12 months?: Yes Did you have a dental problem in the last 6 months where you did not have access to dental care?: No Was dental information given to patient?: Patient has dentist HPI HPI Comments History of Present Illness Details The patient is a 49-year-old female presenting for her physical exam. Pap smear over 5 years ago. Mammogram and colonoscopy done this year. Tdap vaccine and flu vaccine were declined by patient. During a recent colonoscopy, hyperplastic polyps were identified, and the patient is scheduled for a follow-up in ten years. She underwent a mammogram in September, which necessitated a six-month follow-up due to continual findings. The patient has a history of depression with anxiety, for which she is prescribed escitalopram 20 mg. She previously took trazodone for sleep but discontinued it due to nightmares, switching to Seroquel 25 mg, taken as 1 to 2 tablets at night. The patient reports allergies to orange, strawberries, and tomato, and is currently taking buspirone, Claritin, hydroxyzine, ondansetron, and naltrexone 50 mg daily. She experiences knee pain with swelling, particularly in the right knee, which worsened after wearing non-sturdy footwear in the rain. The patient is undergoing physical therapy and is considering a workman's compensation claim due to the nature of her job. She also has elevated hemoglobin that will be recheck. Her family history includes breast cancer in her mother and brain cancer in her sister. She smokes approximately 15 cigarettes a day but has stopped drinking alcohol for nearly two years. [facility] Medical History (Updated 12/29/24 @ 08:07 by Yanelis Mondragon MD) Bronchitis Shoulder arthralgia KELSEA (generalized anxiety disorder) Subclavian artery stenosis, left Upper back pain Neck pain Vertebral artery dissection Elevated blood pressure reading without diagnosis of hypertension Insomnia Conjunctivitis History of asthma History of depression Hx of anxiety disorder Surgical History Hx of ovarian cystectomy Family History Mother Breast cancer, Onset Age: 46 Maternal Aunt Breast cancer Paternal Aunt Breast cancer Paternal Grandmother Breast cancer Sister Brain cancer Father Myocardial infarct Maternal Grandfather CVD (cardiovascular disease) Family/Other Substance abuse Mental problem Social History Household Members: Children Housing: Apartment Do you presently have visiting nurse or other home services: No Alcohol intake: former Patient Tobacco Use Status: Current everyday Tobacco user Tobacco use type: Cigarette Cigarette Packs Per Day: 0.75 Cigarettes Per Day: 15.0 e-Cigarette/Vaping Use: Never Used Second Hand Smoke Exposure: No service: No Current occupational status: employed 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 1. Little interest or pleasure in doing things: several days 2. Feeling down, depressed, or hopeless: not at all 3. Trouble falling or staying asleep, or sleeping too much: several days 4. Feeling tired or having little energy: several days 5. Poor appetite or overeating: not at all 6. Feeling bad about yourself - or that you are a failure or have let yourself or your family down: not at all 7. Trouble concentrating on things, such as reading the newspaper or watching television: not at all 8. Moving or speaking so slowly that other people could have noticed. Or the opposite - being so fidgety or restless that you have been moving around a lot more than usual: not at all 9. Thoughts that you would be better off or of hurting yourself in some way: not at all Total score: 3 Depression Screening Interpretation: Positive Depression Screening Follow-up: Existing condition and Follow-up Visit Requested Depression Screening Done: Yes 80591 - PHQ-9 Billing: Yes Source: Developed by Drs. Hermes Flores, Alexsandra Gutierrez, Meir Huitron and colleagues, with an educational malgorzata from [employer]. Thrive Questionnaire Date Thrive assessed: 12/22/24 I am a: Patient What is your living situation today?: I have a steady place to live Within the past 12 months, did the food you bought not last and you didn't have the money to get more?: Never true Within the past 12 months, did you worry whether your food would run out before you got money to buy more?: Never true Do you have trouble paying for medicines?: No Do you have trouble getting transportation to medical appointments?: No Do you have trouble paying your heating and electricity bill?: No Do you have trouble taking care of your child, family member or friend?: No Do you have trouble with day-to-day activities such as bathing, preparing meals, shopping, managing finances, etc.?: No Are you currently unemployed and looking for a job?: No Are you interested in more education?: No Please select the resources that you would like help with: None Currently or been in a relationship where the following occur: No concerns repo rted THRIVE Score: 0 AUDIT C Alcohol Use Questionnaire (AUDIT-C) 1. How often do you have a drink containing alcohol?: Never 3. How often do you have six or more drinks on one occasion?: Never Total Score: 0 Score Reviewed/Action Taken: No KELSEA-7 AMB Questionnaire KELSEA-7 Date KELSEA - 7 assessed: 12/29/24 Feeling nervous, anxious, or on edge: 0 = Not at all Not being able to stop or control worryin = Not at all Worrying too much about different things: 0 = Not at all Trouble relaxin = Not at all Being so restless that it is hard to sit still: 0 = Not at all Becoming easily annoyed or irritable: 0 = Not at all Feeling afraid as if something awful might happen: 0 = Not at all Total KELSEA-7 score (0-4 normal; 5-9 mild; 10-14 moderate; 15-21 severe): 0 Source: Developed by Drs. Hermes Flores, Alexsandra Gutierrez, Meir Huitron and colleagues, with an educational malgorzata from [employer]. KELSEA-7 Assessment Billing KELSEA-7 Assessment Tool: KELSEA-7 Assessment 06738 Review of Systems Const All systems reviewed & are unremarkable except as noted in HPI and below Card Denies chest pain at rest, Denies chest pain with activity, Denies edema, Denies irregular heart rhythm, Denies claudication, Denies dyspnea, Denies dyspnea on exertion, Denies orthopnea, Denies paroxysmal nocturnal dyspnea and Denies slow heart rate Resp Denies cough, Denies dyspnea and Denies dyspnea on exertion GI Denies abdominal pain, Denies change in bowel habits, Denies excessive flatus, Denies nausea and Denies vomiting Skin/Breast Denies bleeding lesions, Denies changing lesions and Denies rash Neuro Denies lack of coordination Physical exam (Primary Care) Vital Signs: Last Vital Signs Pulse 92 12/29/24 07:35 BP 130/72 12/29/24 07:35 Pulse Ox 98 12/29/24 07:35 Oxygen Delivery Method Room Air 12/29/24 07:35 BMI result Body Mass Index 31.3 BMI Assessment/Plan discussion: High BMI High, discussed plan: lifestyle, weight reduction, dietary and physical activity Tobacco/Smoking Status: Tobacco use Status Tobacco use date assessed 12/29/24 12/29/24 07:38 Patient Tobacco Use Status Current everyday Tobacco 12/29/24 07:38 Tobacco use type Cigarette 12/29/24 07:38 e-Cigarette/Vaping Use Never Used 12/29/24 07:38 Are you ready to quit: No Tobacco cessation counseling provided: Yes Items discussed: Nicotine replacement and QuitWorks Relapse Prevention: discussed the importance of a supportive environment, discussed negative mood or depression after quitting, weight gain after smoking is common and discussed dietary, exercise and/or lifestyle changes Number of minutes spent counselin CPT code: 51996 - 4-10 Minutes PHQ-9: PHQ-9 Score PHQ-9: Total score 3 12/29/24 07:38 Depression Screening Interpretation: Positive Depression Screening Follow-up: Existing condition and Follow-up Visit Requested Thrive Assessment: Date of Thrive Assessment Date Thrive assessed 12/22/24 12/29/24 07:38 Currently or been in a relationship where the following occur: No concerns reported HENMT Head: Yes normal to inspection, Yes normocephalic and Yes atraumatic Ears: external ears normal Eyes General: appearance normal, both eyes and all related structures Eyelids: Yes eyelids normal Conjunctivae: conjunctivae normal Neck Neck: Yes normal visual inspection and Yes supple Resp Effort & Inspection: normal respiratory effort Auscultation: clear to auscultation bilaterally Cardio Jugular venous distension: no JVD Rate: regular rate Rhythm: regular rhythm Heart sounds: S1 normal heart sound present and S2 normal heart sound present GI Inspection: Yes normal to inspection Palpation (GI): Soft to palpation and nontender Auscultation: normal bowel sounds Skin General skin exam: no rashes or lesions noted Neuro General: no focal motor deficits Extrem General: Yes full ROM Psych Appearance: grossly normal Coding Level of Care Code Est Pt Level 3 (24374) Est Pt Prev Care 40-64y(13952) Diagnoses Physical exam Z00.00 Left knee pain M25.562 Right knee pain M25.561 Mild recurrent major depression F33.0 Elevated hemoglobin D58.2 Additional Codes KELSEA-7 Assessment Billing - KELSEA-7 Assessment Tool: KELSEA-7 Assessment 09910 ([id number]) PHQ-9 - 81645 - PHQ-9 Billing: Yes ([id number]) Vital Signs *Quality* - CPT code: 32796 - 4-10 Minutes ([id number]) Time Spent (min) 38 Assessment & Plan Assessment & Plan (1) Physical exam: Code(s): Z00.00 - Encounter for general adult medical examination without abnormal findings Category: Medical (2) Left knee pain: Code(s): M25.562 - Pain in left knee Category: Medical (3) Right knee pain: Code(s): M25.561 - Pain in right knee Category: Medical (4) Mild recurrent major depression: Code(s): F33.0 - Major depressive disorder, recurrent, mild Category: Medical (5) Elevated hemoglobin: Code(s): D58.2 - Other hemoglobinopathies Category: Medical Plan Plan 1. Physical exam The patient underwent a colonoscopy which revealed hyperplastic polyps, and a f ollow-up is scheduled in ten years. 2. Depression With Anxiety The patient is currently managed with escitalopram 20 mg for depression with anxiety. She switched from trazodone to Seroquel due to nightmares, taking 25 mg of Seroquel at night. 3. Knee Pain With Swelling The patient reports knee pain and swelling, particularly in the right knee, exacerbated by wearing non-sturdy footwear. She is undergoing physical therapy and considering a workman's compensation claim. 4. Smoking Cessation The patient is considering smoking cessation and has discussed using a hypnotist and [employer] resources. Orders: Orders XR knee LT 2V Today M25.562 - Pain in left knee Comprehensive [place]. Panel Fast Today Z00.00 - Encounter for general adult medical examination without abnormal findings Lipid Panel Today E78.5 - Hyperlipidemia, unspecified, Z00.00 - Encounter for general adult medical examination without abnormal findings Complete Blood Count Auto Diff Today D58.2 - Other hemoglobinopathies Vitamin D 25-OH Total Today E55.9 - Vitamin D deficiency, unspecified XR knee RT 2V Today M25.561 - Pain in right knee IRON PROFILE Today D58.2 - Other hemoglobinopathies Referrals Orthopedics Referral M25.561 - Pain in right knee, M25.562 - Pain in left knee TESTER VIBRATOR EQUIPMENT Referral Z12.4 - Encounter for screening for malignant neoplasm of cervix
[2024-12-29 07:35] VITALS: BP 130/72; PULSE 92; O2SAT 98; BMI 31.3
== END 2024-12-29 08:05 | disposition home or self-care (01) ==
LOC: HO.HMCH 07:23
PROVIDERS: PCP Internal Medicine; Visit Provider Internal Medicine
DX: Z00.00 Encounter for general adult medical examination without abnormal findings (principal); M25.562 Pain in left knee; M25.561 Pain in right knee; F33.0 Major depressive disorder, recurrent, mild; D58.2 Other hemoglobinopathies

== ENCOUNTER → 2024-12-29 07:23 | Outpatient (BNVA) | payer OTHER, SELFPAY | PROVIDERS: PCP Internal Medicine; Visit Provider Internal Medicine | DX: Z00.00 Encounter for general adult medical examination without abnormal findings (principal); F41.9 Anxiety disorder, unspecified; M25.561 Pain in right knee; M25.562 Pain in left knee; F33.0 Major depressive disorder, recurrent, mild; D58.2 Other hemoglobinopathies; F17.210 Nicotine dependence, cigarettes, uncomplicated; Z91.09 Other allergy status, other than to drugs and biological substances; Z79.899 Other long term (current) drug therapy | CPT/HCPCS: 96127 ==

== ENCOUNTER 2025-02-02 11:04 | Outpatient (REF) | payer OTHER, SELFPAY ==
--- NOTE | ~2025-02-02 | XR_ITS ---
Exam: X-ray, bilateral knees.XR KNEE 1-2 VIEWS BILATERAL TECHNIQUE: AP standing bilateral and lateral views lower extremity joint, bilateral knees INDICATION: M25.562 - Pain in left knee COMPARISON: None available. FINDINGS: RIGHT KNEE: There is subtle narrowing of the medial lateral joint spaces. There is mild focal concavity involving the far medial subarticular bone of the medial femoral condyle. There is a small amount joint fluid. Intercondylar tubercles are peaked. Marginal osteophytes are present along the tibial plateau and patella. There is lucency in the subchondral bone of the patella above the midline that could be related to degenerative cystic change. LEFT KNEE: There is questionable subtle narrowing of the medial lateral joint spaces. There are small marginal osteophytes involving the medial tibial plateau and minute marginal sites involving patella. Intercondylar tubercles are peaked. A small amount joint fluid is seen. Multiple rounded lucencies in the upper third patella and subchondral bone possibly represents subchondral cystic change. XR/XR Knee Herminio 1or 2V IMPRESSION: Right knee: Mild degenerative changes, likely osteoarthritis. Subtle concavity in the subchondral bone of the medial aspect of the medial femoral condyle could represent an age-indeterminate subchondral insufficiency fracture. Left knee: Minimal degenerative changes likely related to osteoarthritis. Electronically signed by: Julius Chappell MD 02/02/2025 11:25 AM [facility]
== END 2025-02-02 11:05 | disposition home or self-care (01) ==
LOC: HO.XRAY 11:04
PROVIDERS: PCP Internal Medicine; Visit Provider Internal Medicine
DX: M25.562 Pain in left knee (principal)
CPT/HCPCS: 73560

== ENCOUNTER → 2025-02-02 11:08 | Outpatient (BNV) | payer OTHER, SELFPAY | PROVIDERS: PCP Internal Medicine; Visit Provider Radiology Diagnostic Radiology | DX: M25.562 Pain in left knee (principal) | CPT/HCPCS: 73560 ==

== ENCOUNTER 2025-02-16 11:21 | Outpatient (REF) | payer OTHER, SELFPAY ==
--- NOTE | ~2025-02-16 | MM_ITS ---
EXAMINATION: MM DIAGNOSTIC DIGITAL BREAST TOMOSYNTHESIS, BILATERAL CLINICAL INFORMATION: -Patient was scheduled for stereotactic needle core biopsy on May 13, 2024 for left asymmetry with questioned distortion without sonographic correlate seen in the lateral breast anterior to middle depth on the CC view. The biopsy was canceled because could not be definitely seen on the images that day. A 6-month follow-up mammogram was recommended and performed on October 13, 2024. Additional short-term follow-up was recommended. -Prior Breast MRI on May 26, 2024 recommended a 6-month follow-up MRI which has not been performed yet. COMPARISON: Multiple prior studies, most recent left diagnostic mammogram on October 13, 2024 and as far back as February 11, 2024. TECHNIQUE: Digital breast tomosynthesis is performed in MLO and CC views along with computer-aided detection (CAD). Synthesized 2D images are generated from the tomosynthesis. FINDINGS: BREAST COMPOSITION: There are scattered areas of fibroglandular density. RIGHT BREAST: No significant masses, suspicious calcifications or other abnormalities are seen. LEFT BREAST: Asymmetry in the lateral aspect of the breast middle depth seen on the CC view, associated with questioned distortion has similar appearance to previous mammograms as far back as January 2024. No new masses or suspicious calcifications are seen. MM/MM tomosynthesis diagnostic BI IMPRESSION: RIGHT BREAST: Negative, no mammographic evidence of malignancy. Normal interval follow-up is recommended in 12 months. LEFT BREAST: 1. Asymmetry in the lateral breast middle depth on the CC view with the questioned distortion, not significantly changed from January 2024. Probably benign. A 6-month follow-up left breast diagnostic mammogram is recommended. 2. Prior breast MRI on May 26, 2024 recommended a 6-month follow-up breast MRI. ASSESSMENT: Category 3: Probably benign RECOMMENDATION: 6 Month F/U Results were provided to the patient at time of visit by the technologist. This patient's information was entered into a reminder system with a target due date for their next mammogram. Electronically signed by: Julio Quach MD 02/16/2025 12:34 PM [facility]
== END 2025-02-16 11:22 | disposition home or self-care (01) ==
LOC: HO.MAMMO 11:21
PROVIDERS: PCP Internal Medicine; Visit Provider Internal Medicine
DX: N64.89 Other specified disorders of breast (principal)
CPT/HCPCS: 77062; 77066

== ENCOUNTER → 2025-02-16 11:30 | Outpatient (BNV) | payer OTHER, SELFPAY | PROVIDERS: PCP Internal Medicine; Visit Provider Radiology Body Imaging | DX: R92.8 Other abnormal and inconclusive findings on diagnostic imaging of breast (principal) | CPT/HCPCS: 77062; 77066 ==

== ENCOUNTER 2025-03-04 08:10 | Outpatient (REF) | payer OTHER, SELFPAY ==
--- NOTE | ~2025-03-04 | XR_ITS ---
EXAMINATION: XR KNEE, LEFT CLINICAL INFORMATION: M25.569 - Pain in unspecified knee COMPARISON: 02/02/2025 TECHNIQUE: Limited exam, sunrise view only of the left knee. FINDINGS: Moderate sized marginal osteophyte is present on the lateral patella. There is possibly a minute marginal osteophyte on the medial trochlear edge. Joint space is congruent and preserved. XR/XR knee LT 1V IMPRESSION: There are marginal osteophytes involving patellofemoral joint but the joint space is preserved. Electronically signed by: Julius Chappell MD 03/04/2025 11:08 AM EST
--- NOTE | ~2025-03-04 | XR_ITS ---
EXAMINATION: XR KNEE, RIGHT CLINICAL INFORMATION: M25.569 - Pain in unspecified knee COMPARISON: February 02, 2025 TECHNIQUE: Single frontal] view of the right knee. FINDINGS: No acute cortical disruption or gross malalignment. No soft tissue calcifications. Mild joint space narrowing. No lytic or blastic lesions. XR/XR knee RT 1V IMPRESSION: Mild bicompartmental osteoarthrosis/osteoarthritis. Limited exam. Electronically signed by: Trevor Martinez MD 03/04/2025 11:05 AM [facility]
== END 2025-03-04 08:11 | disposition home or self-care (01) ==
LOC: HO.HOSX 08:10
PROVIDERS: Visit Provider Physician Assistant
DX: M17.0 Bilateral primary osteoarthritis of knee (principal); M23.91 Unspecified internal derangement of right knee
CPT/HCPCS: 73560

== ENCOUNTER 2025-03-04 10:25 | Outpatient (AMB) | payer OTHER, SELFPAY ==
--- NOTE | 2025-03-04 10:54 | MHC.OFFVIS ---
Intake Visit Reasons: New Pt - B/L knee pain Intake Note: Kassie is a 49 year old female who presents today as a new patient for a evaluation of her bilateral knee pain. Patient reports ongoing pain since April of 2023 ever since they got the new work vans. Patient mentions that there is this running board that she has to twist her knee which causes her pain, also patient hit her knee on the sliding door. She states that her pain moved from one knee to the other, there is not one that is worse than the other . Patient states that she goes to [facility] in [place] for physical therapy, also were she gets her knees Allergies orange Allergy (Mild, Verified 03/04/25 10:57) canker sores strawberry (STRAWBERRY) Allergy (Mild, Verified 03/04/25 10:57) canker sores tomato Allergy (Mild, Verified 03/04/25 10:57) canker sores trazodone Adverse Reaction (Intermediate, Verified 03/04/25 10:57) nightmares HPI Comments Details: History of Present Illness The patient is a 49 year old female presenting with bilateral knee pain. Her symptoms began around [facility] 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 The pain is located on the medial aspect of both knees and has been progressively worsening. The pain is intermittent, described as both a dull ache and a sharp pain with a catching sensation, without clicking. Initially her right knee was worse, but then in June or August, she sustained a direct contusion to her left knee on a slide door, which caused bruising and increased pain in that knee. The patient's symptoms are exacerbated by her work, which involves extensive walking, and limit her to 3-4 hours of walking before the pain becomes significant. She has been receiving physical therapy, including knee taping and electrical stimulation, which has provided some temporary relief. Pain Description - Location: Bilateral knees, primarily on the medial aspect. - Onset: May 2023, associated with a change in work vehicle. - Character: Intermittent; described as both a dull ache and a sharp pain, with a catching sensation but no clicking. 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 - Relieving Factors: Rest and physical therapy, including taping and electrical stimulation, provide some relief. - Associated Events: The patient sustained a direct blow to the left knee after hitting it on a slide door, which exacerbated her symptoms in that knee. Results - Imaging: - Bilateral knee X-rays: Negative for any acute fracture or dislocation. [facility] Medical History Bronchitis Shoulder arthralgia KELSEA (generalized anxiety disorder) Subclavian artery stenosis, left Upper back pain Neck pain Vertebral artery dissection Elevated blood pressure reading without diagnosis of hypertension Insomnia Conjunctivitis History of asthma History of depression Hx of anxiety disorder Surgical History Hx of ovarian cystectomy Family History Mother Breast cancer, Onset Age: 46 Maternal Aunt Breast cancer Paternal Aunt Breast cancer Paternal Grandmother Breast cancer Sister Brain cancer Father Myocardial infarct Maternal Grandfather CVD (cardiovascular disease) Family/Other Substance abuse Mental problem Social History Household Members: Children Housing: Apartment Do you presently have visiting nurse or other home services: No Alcohol intake: former Patient Tobacco Use Status: Current everyday Tobacco user Tobacco use type: Cigarette Cigarette Packs Per Day: 0.75 Cigarettes Per Day: 15.0 e-Cigarette/Vaping Use: Never Used Second Hand Smoke Exposure: No service: No Current occupational status: employed Current occupation: 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 The pain is intermittent, can be sharp with a catching sensation or a dull ache. She notes a history of chronic shoulder and neck pain. - Constitutional: Denies falls. - All other systems reviewed are negative. Const All systems reviewed & are unremarkable except as noted in HPI and below Physical Exam Exam Exam: Physical Exam - Right Knee: Tender to palpation over the medial aspect. Crepitus present with active extension. Pain noted with passive flexion. Negative Layo's. NVI. - Left Knee: Non-tender to palpation over medial and lateral aspects. Crepitus present with active extension. Pain noted with passive flexion. Negative Layo's. NVI. Const General: cooperative, healthy appearing and no acute distress Resp Effort & Inspection: normal respiratory effort and able to speak in complete sentences Psych Appearance: grossly normal Mental Status: mental status grossly normal Attitude: cooperative Assessment & Plan Assessment & Plan (1) Osteoarthritis of knees, bilateral: Code(s): M17.0 - Bilateral primary osteoarthritis of knee Category: Medical (2) Internal derangement of right knee: Code(s): M23.91 - Unspecified internal derangement of right knee Category: Medical Plan 1. Bilateral Knee Pain And Osteoarthritis The patient's symptoms of bilateral knee pain and crepitus are consistent with osteoarthritis confirmed on prior X-rays. The condition is aggravated by her occupational duties. Given the suspicion for a meniscal tear in the right knee, an MRI is ordered for further evaluation. 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 2. Suspected Right Knee Meniscal Tear The patient's report of sharp pain and a catching sensation in her right knee is suspicious for a meniscal tear. An MRI of the right knee is ordered to confirm the diagnosis and assess the severity. Treatment options were discussed, including non-operative management if significant arthritis is present, versus surgical intervention with an arthroscopic partial meniscectomy. 3. Occupational Repetitive Strain The patient's symptoms are directly correlated with her occupational duties, particularly the repetitive twisting motion of her knees. It was recommended that she initiate a workman's compensation claim through her Human Resources department. She was informed that office notes can be provided to support this claim. Consent The rationale for ordering an MRI of the right knee to investigate a suspected meniscal tear was discussed with the patient. The potential findings and subsequent treatment pathways, including non-operative management versus arthroscopic surgery, were reviewed. The nature of the surgical procedure and the expected recovery period were also explained. The patient understood the information provided and consented to proceed with the MRI. Patient was informed and verbally consented to the use of an ambient scribe for clinic note documentation during this visit. Patient Instructions Orders: Orders XR knee RT 1V Today M25.569 - Pain in unspecified knee XR knee LT 1V Today M25.569 - Pain in unspecified knee Coding Level of Care Code New Pt Level 4 (88511) Add On Problem Visit Only Diagnoses Osteoarthritis of knees, bilateral M17.0 Internal derangement of right knee M23.91
== END 2025-03-04 11:42 | disposition home or self-care (01) ==
LOC: HO.HOS 10:25
PROVIDERS: PCP Internal Medicine; Visit Provider Physician Assistant
DX: M17.0 Bilateral primary osteoarthritis of knee (principal); M23.91 Unspecified internal derangement of right knee
CPT/HCPCS: 99204; G2211

== ENCOUNTER → 2025-03-04 10:29 | Outpatient (BNV) | payer OTHER, SELFPAY | PROVIDERS: Visit Provider Radiology Diagnostic Radiology | DX: M17.11 Unilateral primary osteoarthritis, right knee (principal); M25.562 Pain in left knee | CPT/HCPCS: 73560 ==